=== PATIENT | male | born 1965 | race Caucasian/White ===

== ENCOUNTER → 2017-11-11 08:41 | Outpatient (CLI) | payer BC, SELFPAY ==
--- NOTE | 2017-11-11 09:11 | US_ITS ---
US abdomen complete HISTORY: Follow-up cirrhosis ITS.REASON: CIRRHOSIS, NONALCOHOLIC, ODELL ORDERING PHYSICIAN: Gloria José PATIENT AGE: 52 years COMPARISON: 05/06/2017 FINDINGS: PANCREAS:Unremarkable. No obvious mass or abnormal fluid collection. No ductal dilatation. The tail of pancreas is not well delineated due to overlying bowel gas. LIVER:There is increased echogenicity of the liver with poor through transmission of sound. There is appropriate directional blood flow within the portal vein. The portal vein is not enlarged.. No focal liver lesion demonstrated. RIGHT KIDNEY:Unremarkable. Normal size and echogenicity. No hydronephrosis LEFT KIDNEY:Unremarkable. No hydronephrosis. Normal size and echogenicity. GALLBLADDER:There is a small polyp in the fundus of the gallbladder measuring 4 mm.. No gallstones, gallbladder wall thickening, pericholecystic fluid, or biliary dilatation. AORTA:No evidence of aneurysmal dilatation. SPLEEN:Spleen is enlarged at 15 cm ASCITES:None demonstrated. IMPRESSION: 1. Hepatic steatosis with splenomegaly as before. There is appropriate directional blood flow within a nondilated portal vein 2. Gallbladder polyp
== END ==
PROVIDERS: PCP Family Medicine; Visit Provider Nurse Practitioner Acute Care
DX: K74.60 Unspecified cirrhosis of liver (principal)
CPT/HCPCS: 76700

== ENCOUNTER 2018-01-04 07:39 | Observation (INO) ==
[2018-01-04 08:15] LABS: Basophils % 0.5 % (0.1-2.0); Eosinophils # 0.5 K/mm3 (0.0-0.4); Eosinophils % 8.7 % (0.1-12.0); Hematocrit 41.5 % (42.0-52.0); Hemoglobin 14.2 g/dL (14.1-18.0); Lymphocytes # 1.6 K/mm3 (0.7-4.5); Mean Corpuscular HGB Conc 34.1 g/dL (31.8-35.4); Mean Corpuscular Hemoglobin 31.8 pg (27.0-31.2); Mean Corpuscular Volume 93.2 fl (80-94); Mean Platelet Volume 8.2 fl (7.4-10.4); Monocytes # 0.2 K/mm3 (0.1-1.0); Monocytes % 4.3 % (1.7-9.3); Neutrophils # 2.9 K/mm3 (1.8-7.8); Neutrophils % 55.4 % (37.0-80.0); Platelet Count 170 K/mm3 (142-424); Red Blood Count 4.45 M/mm3 (4.60-6.20); Red Cell Distribution Width 13.6 % (11.5-17.5); White Blood Count 5.2 K/mm3 (4.8-10.8)
--- NOTE | 2018-01-04 08:23 | Emergency Department Note ---
ED Disposition Clinical Impression: Unstable angina pectoris Disposition: Admitted as Observation Condition on Discharge: Good Referrals: Corin Murcia MD [Primary Care Provider] - - Critical Care Critical Care Time: No Attestation: On 01/04/18, the high probability of a clinically significant, sudden or life threatening deterioration of the following system(s) required my full and direct attention, intervention and personal management. The time I documented below is in addition to time spent performing reported procedures but includes the following listed in this critical care notation. Medical Decision Making - Medical Records Medical records reviewed: Yes: I reviewed the patient's medical records. - Adin Inquiry Pt receiving controlled substance: No Vital Signs: 01/04/18 07:40 Temperature 97.5 F L Temperature Source Oral Pulse Rate [Right Brachial] 72 Respiratory Rate 22 Blood Pressure [Right Arm] 140/86 Blood Pressure Mean [Right Arm] 104 Blood Pressure Source [Right Arm] Automatic Cuff Blood Pressure Position [Right Arm] Sitting 02 Sat by Pulse Oximetry 97 Oxygen Delivery Method Room Air Orders (Tests/Meds): ORDERS Category Date Time Status XR chest 2V Stat Exams 01/04/18 08:03 Ordered Cardiac Enzymes Stat Lab 01/04/18 08:03 Ordered Complete Blood Count Auto Diff Stat Lab 01/04/18 08:03 Ordered Comprehensive Metabolic Panel Stat Lab 01/04/18 08:03 Ordered - ECG Data Tracing #1 I reviewed this ECG and interpreted as documented below: Normal Sinus Rhythm: Yes Ischemic changes: non-specific ST-T wave changes - Physician Consults Physician Consulted: babita Reason -: Admission Additional Consult: emely Reason -: Pt condition Chest Pain HPI - General Chief Complaint: PAIN Stated Complaint: CP Time Seen by Provider: 01/04/18 07:45 Mode of Arrival: Ambulatory Source of Information: Patient, Medical Record Limitations: No Limitations Description of Symptoms (Recalled from ER Triage Doc. by RN): CHEST PAIN INTERMITTENTLY THAT HAS PROGRESSIVELY GOTTEN WORSE; PT STATES IT. WOKE HIM UP IN THE MIDDLE OF THE NIGHT AND CAUSED HIM TO HAVE LEFT ARM NUMBNESS - History of Present Illness HPI narrative: pt with known card disease with episodes of angina - pt with diabetes MD complaint: chest pain indicative of cardiac Onset (ago): hour(s) Duration: intermittent Activity at onset: during rest Pain location: left chest Severity: moderate Quality: tightness Pain radiation: LUE Risk Factors for CAD: Diabetes Treatments prior to or on arrival for Cardiac Chest Pain: none - Related Data Prior Cardiac Testing/Procedures: Cardiac Angiogram Home Medications Medication Instructions Recorded Confirmed Metformin HCl [Metformin 500mg 1,000 mg PO BID 01/04/18 01/04/18 Tablet] Allergies Allergy/AdvReac Type Severity Reaction Status Date / Time No Known Allergies Allergy Verified 01/04/18 07:50 [facility] History I have reviewed the patient's past medical history: Yes Medical History: Reports:: Diabetes Mellitus Type 2 Denies:: Internal Pacemaker Laterality Cases: Bilateral: Carpal Tunnel Release Other Surgeries: No: Pacemaker - Social History Educational Level: Completed High School Alcohol Intake: never - Psychiatric History Expresses thoughts of harming self/others: None Suicide Plan Description: No Plan ROS Obtained: Yes All systems reviewed & no additional complaints - Constitutional Constitutional: Denies fever(s) - Eyes Eyes: Denies change in vision - ENT Ears, Nose, Mouth, and Throat: Denies sore throat - Cardiovascular Cardiovascular: Reports chest pain at rest - Respiratory Respiratory: No cough - Gastrointestinal Gastrointestingal: Denies: abdominal pain - Musculoskeletal Musculoskeletal: Denies joint pain - Integumentary/Breasts Skin/Breast: Denies rash - Neurologic Neurologic: Denies seizure-like activity Physical Exam - General General appearance: in no apparent distress - Head Head exam: normocephalic - Eye Eye exam: Present: PERRL, EOMI - ENT ENT exam: Present: mucous membranes moist - Neck Neck exam: Present: normal inspection - Respiratory Respiratory exam: Present: normal lung sounds bilaterally. Absent: respiratory distress - Cardiovascular Cardiovascular exam: Present: regular rate, systolic murmur - Abdominal Exam Abdominal exam: Present: soft - Extremities Exam Extremities exam: Absent: joint swelling - Neurological Exam Neurological exam: Present: alert, oriented X3, CN II-XII intact - Psychiatric Psychiatric exam: Present: normal affect - Skin Skin exam: Absent: rash
[2018-01-04 08:35] LABS: Alanine Aminotransferase 81 U/L (12-78); Albumin Level 4.1 gm/dL (3.4-5.0); Albumin/Globulin Ratio 1.2 (1.1-1.8); Alkaline Phosphatase 79 U/L (46-116); Anion Gap 16.2 mEq/L (5-15); Aspartate Amino Transferase 60 U/L (15-37); Bilirubin,Total 0.3 mg/dL (0.2-1.0); Blood Urea Nitrogen 20 mg/dL (7-18); Carbon Dioxide 24 mmol/L (21.0-32.0); Chloride 106 mmol/L (98-107); Creatine Kinase 152 U/L (39-308); Globulin 3.3 gm/dl (1.3-3.2); Glucose 153 mg/dL (74-106); Potassium 4.2 mmoL/L (3.5-5.1); Sodium 142 mmol/L (136-145); Total Protein,Serum 7.4 gm/dL (6.4-8.2)
--- NOTE | 2018-01-04 08:38 | Consult Report ---
History of Present Illness Consult date: 01/04/18 Requesting physician: Corin Murcia Consult reason: chest pain Chief complaint: chest pain Additional Medical History:: 1. CAD A. [facility], 2016, bifurcating CAD of LAD (2 mm vessel) and diagonal with recommendation for medical therapy until uncontrolled angina. 2. DM 3. HTN 4. HLD History of present illness: 52 yo WM with known CAD, DM, HTN and HLD presented to ER for evaluation of recurrent chest pain and left arm discomfort over the last several hours. Symptoms of exertional CP and SOA noted while riding bicycle this week with increasing episodes with less activity since then to the point of occurring at rest. Initial troponin is kaylin and EKG is sinus without evidence of ACS. Cardiology consulted for evaluation. [facility] History Medical History: Reports:: Coronary Artery Disease, Diabetes Mellitus Type 2, Hyperlipidemia, Hypertension Denies:: Internal Pacemaker Laterality Cases: Bilateral: Carpal Tunnel Release Other Surgeries: No: Pacemaker - *Social History Educational Level: Completed High School Alcohol Intake: never - Psychiatric History Expresses thoughts of harming self/others: None Suicide Plan Description: No Plan Meds Home Medications Medication Instructions Recorded Confirmed Type Amlodipine Besylate [Norvasc 5mg 5 mg .ROUTE DAILY 01/04/18 01/04/18 History tablet] Aspirin [Aspir 81] 81 mg PO DAILY 01/04/18 01/04/18 History Atorvastatin Calcium [Atorvastatin 20 mg PO DAILY 01/04/18 01/04/18 History 20mg Tab] Clopidogrel Bisulfate [Plavix 75mg 75 mg PO DAILY 01/04/18 01/04/18 History Tab] Doxazosin Mesylate [Cardura 2mg 2 mg PO DAILY 01/04/18 01/04/18 History Tab] Esomeprazole Magnesium 40 mg PO DAILY 01/04/18 01/04/18 History Isosorbide Mononitrate [Imdur 60mg 60 mg PO DAILY 01/04/18 01/04/18 History ER tablet] Metformin HCl [Metformin 500mg 1,000 mg PO DAILY 01/04/18 01/04/18 History Tablet] Metoprolol Succinate 100 mg PO DAILY 01/04/18 01/04/18 History [place]-3 Fatty Acids/Fish Oil [Fish 1 each PO DAILY 01/04/18 01/04/18 History Oil 1,000 mg Capsule] Pramipexole Di-HCl [Mirapex 0 mg PO DAILY 01/04/18 01/04/18 History 0.125mg tablet] Pramipexole Di-HCl [Mirapex 0.125 mg .ROUTE DAILY 01/04/18 01/04/18 History 0.125mg tablet] Saxagliptin HCl [Onglyza] 5 mg PO DAILY 01/04/18 01/04/18 History Sertraline HCl [Zoloft 100mg 0 mg PO DAILY 01/04/18 01/04/18 History tablet] Sertraline HCl [Zoloft 100mg 100 mg PO DAILY 01/04/18 01/04/18 History tablet] Allergies Allergy/AdvReac Type Severity Reaction Status Date / Time No Known Allergies Allergy Verified 01/04/18 07:50 Review of Systems - *Cardiovascular Reports chest pain, Reports shortness of breath with activity - *Respiratory Reports shortness of breath with activity - *Gastrointestinal Denies abdominal pain - *Neurologic Denies seizure-like activity Exam Vital signs and Labs for Last 24 Hours: Temp Pulse Resp BP Pulse Ox 97.5 F L 72 22 140/86 97 01/04/18 07:40 01/04/18 07:40 01/04/18 07:40 01/04/18 07:40 01/04/18 07:40 Laboratory Results - last 24 hr 01/04/18 07:45: WBC 5.2, RBC 4.45 L, Hgb 14.2, Hct 41.5 L, MCV 93.2, MCH 31.8 H , MCHC 34.1, RDW 13.6, Plt Count 170, MPV 8.2, Neut % (Auto) 55.4, Lymph % (Auto ) 31.0, [place] % (Auto) 4.3, Eos % (Auto) 8.7, Baso % (Auto) 0.5, Neut # (Auto) 2.9, Lymph # (Auto) 1.6, [place] # (Auto) 0.2, Eos # (Auto) 0.5 H, Baso # (Auto) 0.0 I & O for Last 24 hours: Intake & Output 01/01/18 01/02/18 01/03/18 01/04/18 11:59 11:59 11:59 11:59 Weight 200 lb - *Routine Neck Exam Absent: carotid bruit - *Routine Respiratory Exam Present: CTA bilaterally - *Routine Cardiovascular Exam Present: RRR. Absent: murmur, gallop - *Routine Extremities Exam Absent: edema - *Routine Neurological Exam Present: alert, oriented X3, moving all extremities Assessment and Plan (1) CAD (coronary artery disease) Current visit: Yes Status: Acute Category: Medical Code(s): I25.10 - Atherosclerotic heart disease of [place] coronary artery without angina pectoris (2) HTN (hypertension) Current visit: Yes Status: Acute Category: Medical Code(s): I10 - Essential (primary) hypertension (3) HLD (hyperlipidemia) Current visit: Yes Status: Acute Category: Medical Code(s): E78.5 - Hyperlipidemia, unspecified (4) Diabetes mellitus Current visit: Yes Status: Acute Category: Medical Code(s): E11.9 - Type 2 diabetes mellitus without complications - Assessment and plan all Dx Assessment and Plan for all problems:: 1. Pt has UAP with known CAD on medical therapy. Will proceed with LHC. 2. Continue ASA and plavix along with norvasc and isosorbide. 3. Continue statin therapy. 4. Further recommendations to follow.
--- NOTE | 2018-01-04 09:29 | History & Physical Report ---
*Admission Date: 01/04/18 *Chief complaint: Chest pain *History of present illness: Mr Hou is a 52 yo WM with known CAD, DM, HTN and HLD who presented to ER for evaluation of recurrent chest pain and left arm discomfort over the last several hours. He noted symptoms of exertional CP and SOA while riding a bicycle this week with increasing episodes with less activity occurring at rest. He was driving to work this AM when the CP began again and he just drove himself to the hospital ER. He has been seen by cardiology. Initial troponin was normal and EKG revealed sinus rhythm without evidence of ACS. Due to his UAP with known CAD on medical therapy, he was taken to the asset availability leader for a LHC. At the time of this exam patient has had the LHC with stent placement. He remains drowsy. He denies CP and SOB. [facility] History Medical History: Reports:: Arrhythmia, Atherosclerotic Heart Disease, Coronary Artery Disease, Depression, Diabetes Mellitus Type 2, Hyperlipidemia, Hypertension, Kidney Stones Denies:: Internal Pacemaker, Seizures Comment: Diverticulosis Laterality Cases: Bilateral: Carpal Tunnel Release Other Surgeries: Yes: Cardiac Catheterization. No: Pacemaker Comment: Kidney stone extraction - *Social History Educational Level: Completed High School Smoking Status: Never smoker Alcohol Intake: never - Psychiatric History Expresses thoughts of harming self/others: None Suicide Plan Description: No Plan *Family Hx:: Adopted Review of Systems - Constitutional Reports fatigue, Denies chills - ENT Denies ear pain, Denies sore throat - *Cardiovascular Reports chest pain, Reports chest pain at rest, Reports chest pain with activity , Reports shortness of breath with activity - *Respiratory Reports shortness of breath, Reports shortness of breath with activity, Denies cough - *Gastrointestinal Reports nausea, Reports vomiting (periodically), Denies abdominal pain, Denies vomiting blood - *Genitourinary Denies difficulty urinating - *Musculoskeletal Denies joint pain Comments: AA 2 weeks ago which left him sore; side bag did deploy - *Neurologic Denies abnormal walking, Denies seizure-like activity - Psychiatric Reports depression - Endocrine Reports increased urination Meds Home Medications Medication Instructions Recorded Confirmed Type Amlodipine Besylate [Norvasc 5mg 5 mg .ROUTE DAILY 01/04/18 01/04/18 History tablet] Aspirin [Aspir 81] 81 mg PO DAILY 01/04/18 01/04/18 History Atorvastatin Calcium [Atorvastatin 20 mg PO DAILY 01/04/18 01/04/18 History 20mg Tab] Clopidogrel Bisulfate [Plavix 75mg 75 mg PO DAILY 01/04/18 01/04/18 History Tab] Doxazosin Mesylate [Cardura 2mg 2 mg PO DAILY 01/04/18 01/04/18 History Tab] Esomeprazole Magnesium 40 mg PO DAILY 01/04/18 01/04/18 History Isosorbide Mononitrate [Imdur 60mg 60 mg PO DAILY 01/04/18 01/04/18 History ER tablet] Metformin HCl [Metformin 500mg 1,000 mg PO DAILY 01/04/18 01/04/18 History Tablet] Metoprolol Succinate 100 mg PO DAILY 01/04/18 01/04/18 History [place]-3 Fatty Acids/Fish Oil [Fish 1 each PO DAILY 01/04/18 01/04/18 History Oil 1,000 mg Capsule] Pramipexole Di-HCl [Mirapex 0 mg PO DAILY 01/04/18 01/04/18 History 0.125mg tablet] Pramipexole Di-HCl [Mirapex 0.125 mg .ROUTE DAILY 01/04/18 01/04/18 History 0.125mg tablet] Saxagliptin HCl [Onglyza] 5 mg PO DAILY 01/04/18 01/04/18 History Sertraline HCl [Zoloft 100mg 0 mg PO DAILY 01/04/18 01/04/18 History tablet] Sertraline HCl [Zoloft 100mg 100 mg PO DAILY 01/04/18 01/04/18 History tablet] Allergies Allergy/AdvReac Type Severity Reaction Status Date / Time No Known Allergies Allergy Verified 01/04/18 07:50 Exam Vital signs and Labs for Last 24 Hours: Temp Pulse Resp BP Pulse Ox 98.2 F 75 18 125/80 96 01/04/18 09:19 01/04/18 09:19 01/04/18 09:19 01/04/18 09:19 01/04/18 09:16 Laboratory Results - last 24 hr 01/04/18 07:45: WBC 5.2, RBC 4.45 L, Hgb 14.2, Hct 41.5 L, MCV 93.2, MCH 31.8 H , MCHC 34.1, RDW 13.6, Plt Count 170, MPV 8.2, Neut % (Auto) 55.4, Lymph % (Auto ) 31.0, [place] % (Auto) 4.3, Eos % (Auto) 8.7, Baso % (Auto) 0.5, Neut # (Auto) 2.9, Lymph # (Auto) 1.6, [place] # (Auto) 0.2, Eos # (Auto) 0.5 H, Baso # (Auto) 0.0 01/04/18 07:45: Sodium 142, Potassium 4.2, Chloride 106, Carbon Dioxide 24, Anion Gap 16.2 H, BUN 20 H, Creatinine 0.74, Estimated Creat Clear 150, Estimated GFR 111, Est GFR ( Amer) 134, Glucose 153 H, Calcium 9.0, Total Bilirubin 0.3, AST 60 H, ALT 81 H, Alkaline Phosphatase 79, Total Creatine Kinase 152, CK-MB (CK-2) 1.2, CK-MB (CK-2) Rel Index 0.8, Troponin I < 0.02, Total Protein 7.4, Albumin 4.1, Globulin 3.3 H, Albumin/Globulin Ratio 1.2 I & O for Last 24 hours: Intake & Output 01/01/18 01/02/18 01/03/18 01/04/18 11:59 11:59 11:59 11:59 Weight 200 lb Radiology Reports for the Last 24 Hours: CXR 01/04/18 MPRESSION: 1. No definite acute finding. 2. Increased density over the upper aspect of the heart in the anterior clear space and overlying the left ventricle which may be due to areas of summation artifact. Recommend follow-up to confirm and to exclude underlying pathological process 01/04/18 [facility] IMPRESSION: 1. Angiographically indeterminate disease in the proximal to mid LAD which produced a severe hemodynamic response to adenosine 2. Successful stenting of the proximal to mid LAD hemodynamically severe disease reduced to 0% with 1 drug-eluting stent 3. Normal ejection fraction 4. Elevated LVEDP PLAN: 1. Brilinta and aspirin 2. LDL less than 55 3. Patient has diastolic dysfunction and would benefit from diuretics 4. Cardiac rehabilitation 5. Avoidance of tobacco products 6. Aggressive risk factor modification - Constitutional no acute distress Comments: drowsy after [facility]; easily awakened - *Routine HEENT Exam Head: Present: normocephalic, atraumatic Eye: Present: PERRL. Absent: conjunctival icterus ENT: Present: mucous membranes moist - *Routine Neck Exam Present: supple. Absent: lymphadenopathy, thyromegaly - *Routine Respiratory Exam Present: CTA bilaterally (A&P) - *Routine Cardiovascular Exam Present: RRR (monitor showing SB) - *Routine Abdominal Exam Present: soft, normoactive bowel sounds. Absent: tenderness - *Routine Extremities Exam Absent: edema, calf tenderness - *Routine Neurological Exam Present: alert drowsy H&P: Result - Labs Labs: Short CBC 01/04/18 Range/Units 07:45 WBC 5.2 (4.8-10.8) K/mm3 Hgb 14.2 (14.1-18.0) g/dL Hct 41.5 L (42.0-52.0) % Plt Count 170 (142-424) K/mm3 BMP 01/04/18 07:45 Sodium 142 Potassium 4.2 Chloride 106 Carbon Dioxide 24 BUN 20 H Creatinine 0.74 Glucose 153 H Calcium 9.0 Cardiac Enzymes 01/04/18 Range/Units 07:45 Total Creatine Kinase 152 (39-308) U/L CK-MB (CK-2) 1.2 (0.0-3.6) ng/ml Troponin I < 0.02 (0.00-0.06) ng/ml Liver Function 01/04/18 Range/Units 07:45 Total Bilirubin 0.3 (0.2-1.0) mg/dL AST 60 H (15-37) U/L ALT 81 H (12-78) U/L Alkaline Phosphatase 79 (46-116) U/L Albumin 4.1 (3.4-5.0) gm/dL Assessment and Plan (1) CAD (coronary artery disease) Current visit: Yes Status: Acute Category: Medical Code(s): I25.10 - Atherosclerotic heart disease of [place] coronary artery without angina pectoris (2) HTN (hypertension) Current visit: Yes Status: Acute Category: Medical Code(s): I10 - Essential (primary) hypertension (3) HLD (hyperlipidemia) Current visit: Yes Status: Acute Category: Medical Code(s): E78.5 - Hyperlipidemia, unspecified (4) Diabetes mellitus Current visit: Yes Status: Acute Category: Medical Code(s): E11.9 - Type 2 diabetes mellitus without complications (5) Status post insertion of drug-eluting stent into left anterior descending ( LAD) artery for coronary artery disease Current visit: Yes Status: Acute Category: Surgical Code(s): Z95.5 - Presence of coronary angioplasty implant and graft (6) Unstable angina pectoris Current visit: Yes Status: Acute Category: Medical Code(s): I20.0 - Unstable angina (7) Diastolic dysfunction Current visit: Yes Status: Acute Category: Medical Code(s): I51.9 - Heart disease, unspecified - Assessment and plan all Dx Assessment and Plan for all problems:: Will observe overnight and adjust meds as per cardiology
[2018-01-05 06:19] LABS: Basophils % 0.4 % (0.1-2.0); Eosinophils # 0.3 K/mm3 (0.0-0.4); Eosinophils % 4.8 % (0.1-12.0); Hematocrit 41.9 % (42.0-52.0); Lymphocytes # 1.3 K/mm3 (0.7-4.5); Lymphocytes % 24.5 K/mm3 (10-50); Mean Corpuscular HGB Conc 33.4 g/dL (31.8-35.4); Mean Corpuscular Volume 92.7 fl (80-94); Monocytes # 0.2 K/mm3 (0.1-1.0); Monocytes % 4.1 % (1.7-9.3); Neutrophils # 3.6 K/mm3 (1.8-7.8); Neutrophils % 66.3 % (37.0-80.0); Platelet Count 157 K/mm3 (142-424); Red Blood Count 4.52 M/mm3 (4.60-6.20); Red Cell Distribution Width 13.5 % (11.5-17.5); White Blood Count 5.4 K/mm3 (4.8-10.8)
[2018-01-05 06:26] LABS: Chol/HDL Ratio 3.3 (1-3.5)
--- NOTE | 2018-01-05 07:39 | Pharmacy Consult Notes ---
[facility] Pharmacy VTE Monitoring - Patient Demographics Admission date: 01/04/18 Report Date: 01/05/18 Time: 07:39 Allergies/Adverse Reactions: Patient Allergies No Known Allergies Allergy (Verified 01/04/18 07:50) Height: 1.78 m Weight: 93.582 kg Patient Problems: Current Active Problems Unstable angina pectoris (Acute) CAD (coronary artery disease) (Acute) HTN (hypertension) (Acute) HLD (hyperlipidemia) (Acute) Diabetes mellitus (Acute) Status post insertion of drug-eluting stent into left anterior descending (LAD) artery for coronary artery disease (Acute) Diastolic dysfunction (Acute) - VTE Risk Labs: VTE Related Lab Results Hgb 14.0 g/dL (14.1-18.0) L 01/05/18 05:55 Hct 41.9 % (42.0-52.0) L 01/05/18 05:55 Plt Count 157 K/mm3 (142-424) 01/05/18 05:55 BUN 12 mg/dL (7-18) D 01/05/18 05:55 Creatinine 0.72 mg/dL (0.70-1.30) 01/05/18 05:55 Estimated Creat Clear 162 mL/min (0-300) 01/05/18 05:55 VTE Score: 1 VTE Risk Level: Low Risk - Prophylaxis VTE Prophylaxis Ordered?: Yes Types of VTE Prophylaxis: TEDS Knee High Location of Applied Device: Bilateral Lower Extremeties - VTE Diagnosis Confirmed Treatment or plan recommended: Continue Current Treatment
--- NOTE | 2018-01-05 08:50 | Progress Note ---
Internal Medicine - PN: Subj *Date: 01/05/18 *Time: 08:52 Interval history: The patient is doing well this morning. He is remained stable through the night. His blood pressure slightly elevated this morning. His rhythm is normal. He is okay per cardiology to be discharged. He will continue on Brilinta 90 mg twice daily and 81 mg of aspirin a day. Plavix will be discontinued. He did not receive his blood pressure medications are regular medications this morning. I have placed orders to correct that. He will be seen in follow-up in the office next week by Dr. jc and be seen in follow- up by cardiology per their orders. Exam Vital signs and Labs for Last 24 Hours: Temp Pulse Resp BP Pulse Ox 98.0 F 61 24 139/84 99 01/05/18 04:00 01/05/18 06:00 01/05/18 06:00 01/05/18 06:00 01/05/18 06:00 Laboratory Results - last 24 hr 01/04/18 11:11: Activated Clotting Time 278 H* 01/04/18 11:17: Activated Clotting Time 389 H* D 01/05/18 05:55: WBC 5.4, RBC 4.52 L, Hgb 14.0 L, Hct 41.9 L, MCV 92.7, MCH 31.0 , MCHC 33.4, RDW 13.5, Plt Count 157, MPV 8.0, Neut % (Auto) 66.3, Lymph % (Auto ) 24.5, [place] % (Auto) 4.1, Eos % (Auto) 4.8, Baso % (Auto) 0.4, Neut # (Auto) 3.6, Lymph # (Auto) 1.3, [place] # (Auto) 0.2, Eos # (Auto) 0.3, Baso # (Auto) 0.0 01/05/18 05:55: Sodium 143, Potassium 4.0, Chloride 108 H, Carbon Dioxide 26, Anion Gap 13.0, BUN 12 D, Creatinine 0.72, Estimated Creat Clear 162, Estimated GFR 115, Est GFR ( Amer) 139, Glucose 113 H D, Magnesium 2.2, Triglycerides 145, Cholesterol 105 L, LDL Cholesterol 44, VLDL Cholesterol 29, HDL Cholesterol 32, Cholesterol/HDL Ratio 3.3 01/05/18 06:05: POC Glucose 109 I & O for Last 24 hours: Intake & Output 01/02/18 01/03/18 01/04/18 01/05/18 11:59 11:59 11:59 11:59 Intake Total 600 / 600 Output Total 900 / 900 Balance -300 / -300 Weight 200 lb 206 lb 5 oz - Constitutional no acute distress - *Routine HEENT Exam Eye: Present: PERRL. Absent: conjunctival icterus ENT: Present: mucous membranes moist - Routine Chest/Breast/Axilla Exam Chest wall: Absent: tenderness - *Routine Respiratory Exam Present: CTA bilaterally - *Routine Cardiovascular Exam Present: RRR. Absent: murmur, rubs - *Routine Abdominal Exam Present: soft. Absent: tenderness - *Routine Extremities Exam Absent: edema - *Routine Skin Exam Present: intact Assessment and Plan (1) CAD (coronary artery disease) Current visit: Yes Status: Acute Category: Medical Code(s): I25.10 - Atherosclerotic heart disease of [place] coronary artery without angina pectoris (2) HTN (hypertension) Current visit: Yes Status: Acute Category: Medical Code(s): I10 - Essential (primary) hypertension (3) HLD (hyperlipidemia) Current visit: Yes Status: Acute Category: Medical Code(s): E78.5 - Hyperlipidemia, unspecified (4) Diabetes mellitus Current visit: Yes Status: Acute Category: Medical Code(s): E11.9 - Type 2 diabetes mellitus without complications (5) Status post insertion of drug-eluting stent into left anterior descending ( LAD) artery for coronary artery disease Current visit: Yes Status: Acute Category: Surgical Code(s): Z95.5 - Presence of coronary angioplasty implant and graft (6) Unstable angina pectoris Current visit: Yes Status: Acute Category: Medical Code(s): I20.0 - Unstable angina (7) Diastolic dysfunction Current visit: Yes Status: Acute Category: Medical Code(s): I51.9 - Heart disease, unspecified - Assessment and plan all Dx Assessment and Plan for all problems:: The patient will be discharged. See the medicine list. Brilinta and aspirin are included. Follow-up will be in [address] Jc and by cardiology per their direction.
--- NOTE | 2018-01-05 10:03 | Progress Note ---
Subjective Date: 01/05/18 Time: 10:00 Principal diagnosis: Unstable angina Interval history: 52 yo WM in bed in NAD. Occasional twinge sensation in chest but nothing like prior to admission. Ready to go home. Exam Vital signs and Labs for Last 24 Hours: Temp Pulse Resp BP Pulse Ox 98.0 F 61 24 139/84 99 01/05/18 04:00 01/05/18 06:00 01/05/18 06:00 01/05/18 06:00 01/05/18 06:00 Laboratory Results - last 24 hr 01/04/18 11:11: Activated Clotting Time 278 H* 01/04/18 11:17: Activated Clotting Time 389 H* D 01/05/18 05:55: WBC 5.4, RBC 4.52 L, Hgb 14.0 L, Hct 41.9 L, MCV 92.7, MCH 31.0 , MCHC 33.4, RDW 13.5, Plt Count 157, MPV 8.0, Neut % (Auto) 66.3, Lymph % (Auto ) 24.5, [place] % (Auto) 4.1, Eos % (Auto) 4.8, Baso % (Auto) 0.4, Neut # (Auto) 3.6, Lymph # (Auto) 1.3, [place] # (Auto) 0.2, Eos # (Auto) 0.3, Baso # (Auto) 0.0 01/05/18 05:55: Sodium 143, Potassium 4.0, Chloride 108 H, Carbon Dioxide 26, Anion Gap 13.0, BUN 12 D, Creatinine 0.72, Estimated Creat Clear 162, Estimated GFR 115, Est GFR ( Amer) 139, Glucose 113 H D, Magnesium 2.2, Triglycerides 145, Cholesterol 105 L, LDL Cholesterol 44, VLDL Cholesterol 29, HDL Cholesterol 32, Cholesterol/HDL Ratio 3.3 01/05/18 06:05: POC Glucose 109 I & O for Last 24 hours: Intake & Output 01/02/18 01/03/18 01/04/18 01/05/18 11:59 11:59 11:59 11:59 Intake Total 600 / 600 Output Total 900 / 900 Balance -300 / -300 Weight 200 lb 206 lb 5 oz - *Routine Respiratory Exam Present: CTA bilaterally - *Routine Cardiovascular Exam Present: RRR Progress Note: A&P (1) CAD (coronary artery disease) Status: Acute Current Visit: Yes (2) HTN (hypertension) Status: Acute Current Visit: Yes (3) HLD (hyperlipidemia) Status: Acute Current Visit: Yes (4) Diabetes mellitus Status: Acute Current Visit: Yes (5) Status post insertion of drug-eluting stent into left anterior descending ( LAD) artery for coronary artery disease Status: Acute Current Visit: Yes (6) Unstable angina pectoris Status: Acute Current Visit: Yes (7) Diastolic dysfunction Status: Acute Current Visit: Yes Assessment and Plan for All Diagnoses:: OK for discharge home from cardiology standpoint. Will use Brilinta and ASA for now and stop plavix. If unable to afford Brilinta then can return to plavix. OK to return to work with lifting restrictions for right arm for one week. Follow up next Tuesday in office.
--- NOTE | 2018-01-08 22:13 | Discharge Summary ---
General - General Admission date:: 01/04/18 Discharge date: 01/05/18 HPI HPI: Mr Hou is a 52 yo WM with known CAD, DM, HTN and HLD who presented to ER for evaluation of recurrent chest pain and left arm discomfort over the last several hours. He noted symptoms of exertional CP and SOA while riding a bicycle this week with increasing episodes with less activity occurring at rest. He was driving to work this AM when the CP began again and he just drove himself to the hospital ER. He has been seen by cardiology. Initial troponin was normal and EKG revealed sinus rhythm without evidence of ACS. Due to his UAP with known CAD on medical therapy, he was taken to the labor relations supervisor for a LHC. At the time of this exam patient has had the LHC with stent placement. He remains drowsy. He denies CP and SOB. Hospital Course Hospital Course: The patient did well after the procedure and stayed overnight for observation. He remained stable through the night. His blood pressure was slightly elevated the am after stent placement. His rhythm was normal. Cardiology felt he was stable to be discharged on Brilinta 90 mg twice daily and 81 mg of aspirin a day. Plavix was discontinued. He will be seen in follow-up in the office in a week with Dr. jc and with cardiology in a week as well. Objective Vital signs: Temp Pulse Resp BP Pulse Ox 98.1 F 76 16 145/92 97 01/05/18 12:00 01/05/18 12:00 01/05/18 12:00 01/05/18 12:00 01/05/18 12:00 Narrative: - Constitutional no acute distress Comments: drowsy after LHC; easily awakened - *Routine HEENT Exam Head: Present: normocephalic, atraumatic Eye: Present: PERRL. Absent: conjunctival icterus ENT: Present: mucous membranes moist - *Routine Neck Exam Present: supple. Absent: lymphadenopathy, thyromegaly - *Routine Respiratory Exam Present: CTA bilaterally (A&P) - *Routine Cardiovascular Exam Present: RRR (monitor showing SB) - *Routine Abdominal Exam Present: soft, normoactive bowel sounds. Absent: tenderness - *Routine Extremities Exam Absent: edema, calf tenderness - *Routine Neurological Exam Present: alert drowsy DS: Diagnosis - Discharge Diagnosis (1) CAD (coronary artery disease) Status: Acute (2) HTN (hypertension) Status: Acute (3) HLD (hyperlipidemia) Status: Acute (4) Diabetes mellitus Status: Acute (5) Status post insertion of drug-eluting stent into left anterior descending ( LAD) artery for coronary artery disease Status: Acute (6) Unstable angina pectoris Status: Acute (7) Diastolic dysfunction Status: Acute Discharge Plan - Patient Discharge Instructions ACTIVITY: Limited activity DIET: low fat, low cholesterol Patient Instructions: Angina, Cardiac Catheterization - Follow up Plan Follow up with: Corin Jc MD [Primary Care Provider] - 1 week Disposition: Home, Self-Halfway Medications: Home Medications Medication Instructions Recorded Confirmed Type Amlodipine Besylate [Norvasc 5mg 5 mg .ROUTE DAILY 01/04/18 01/04/18 History tablet] Aspirin [Aspir 81] 81 mg PO DAILY 01/04/18 01/04/18 History Atorvastatin Calcium [Atorvastatin 20 mg PO DAILY 01/04/18 01/04/18 History 20mg Tab] Doxazosin Mesylate [Cardura 2mg 2 mg PO DAILY 01/04/18 01/04/18 History Tab] Esomeprazole Magnesium 40 mg PO DAILY 01/04/18 01/04/18 History Isosorbide Mononitrate [Imdur 60mg 60 mg PO DAILY 01/04/18 01/04/18 History ER tablet] Metformin HCl [Metformin 500mg 1,000 mg PO DAILY 01/04/18 01/04/18 History Tablet] Metoprolol Succinate 100 mg PO DAILY 01/04/18 01/04/18 History Lynn-3 Fatty Acids/Fish Oil [Fish 1 each PO DAILY 01/04/18 01/04/18 History Oil 1,000 mg Capsule] Pramipexole Di-HCl [Mirapex 0 mg PO DAILY 01/04/18 01/04/18 History 0.125mg tablet] Saxagliptin HCl [Onglyza] 5 mg PO DAILY 01/04/18 01/04/18 History Sertraline HCl [Zoloft 100mg 100 mg PO DAILY 01/04/18 01/04/18 History tablet] Prescriptions/Medication Reconciliation: New Ticagrelor [Brilinta 90mg Tablet] 90 mg PO BID #60 tab Continue Metformin HCl [Metformin 500mg Tablet] 1,000 mg PO DAILY Sertraline HCl [Zoloft 100mg tablet] 100 mg PO DAILY Saxagliptin HCl [Onglyza] 5 mg PO DAILY Pramipexole Di-HCl [Mirapex 0.125mg tablet] 0 mg PO DAILY Lynn-3 Fatty Acids/Fish Oil [Fish Oil 1,000 mg Capsule] 1 each PO DAILY Metoprolol Succinate 100 mg PO DAILY Isosorbide Mononitrate [Imdur 60mg ER tablet] 60 mg PO DAILY Esomeprazole Magnesium 40 mg PO DAILY Doxazosin Mesylate [Cardura 2mg Tab] 2 mg PO DAILY Atorvastatin Calcium [Atorvastatin 20mg Tab] 20 mg PO DAILY Amlodipine Besylate [Norvasc 5mg tablet] 5 mg .ROUTE DAILY Aspirin [Aspir 81] 81 mg PO DAILY Discontinued Sertraline HCl [Zoloft 100mg tablet] 0 mg PO DAILY Pramipexole Di-HCl [Mirapex 0.125mg tablet] 0.125 mg .ROUTE DAILY Clopidogrel Bisulfate [Plavix 75mg Tab] 75 mg PO DAILY
== END 2018-01-05 12:30 | disposition home or self-care (01) ==
LOC: 2ND 07:39 → ER 07:39 → 2ND 09:19 → ICU 11:29
PROVIDERS: ADMIT Family Medicine; ATTEND Family Medicine

== ENCOUNTER 2018-01-26 10:48 | Outpatient (RCR) | payer BC, SELFPAY | END 2018-02-27 14:57 | disposition home or self-care (01) | LOC: PT 10:48 | PROVIDERS: PCP Family Medicine; Visit Provider Internal Medicine | DX: Z95.5 Presence of coronary angioplasty implant and graft (principal) ==

== ENCOUNTER → 2018-10-02 14:02 | Outpatient (CLI) | payer BC, SELFPAY ==
--- NOTE | 2018-10-02 14:07 | XR_ITS ---
XR chest 2V HISTORY: ITS.REASON: LOCALIZED EDEMA ORDERING PHYSICIAN: Corin Murcia MD PATIENT AGE: 53 years COMPARISON: PA and lateral chest 02/02/2018 FINDINGS: The cardiomediastinal silhouette and pulmonary vascularity are within normal limits. The lungs are clear without infiltrates, suspicious nodules, or pleural effusions. No acute bony abnormalities. There are multilevel degenerative changes middle lower thoracic spine. IMPRESSION: Negative chest, no acute finding
== END ==
PROVIDERS: PCP Family Medicine; Visit Provider Family Medicine
DX: R60.0 Localized edema (principal)
CPT/HCPCS: 71046

== ENCOUNTER → 2018-10-06 08:26 | Outpatient (CLI) | payer BC, SELFPAY ==
--- NOTE | 2018-10-06 08:33 | CA_ITS ---
PROCEDURE: 2-D M-mode and color Doppler study INDICATIONS FOR THE TEST: Chest pain COPD Heart Murmur Tobacco Smoking Palpitations Fatigue Syncope Edema HypertensionXDiabetes MellitusX Rheumatic Fever SOBXDOE Obesity HyperlipidemiaX Family History HD Additional History CAD PATIENT INFORMATION HEIGHT: 70 WEIGHT:204 GENDER: Male B/P:119/68 2-D/M-MODE INTERPRETATION: 2-D MEASUREMENTS OBSERVED VALUES IN CMS Right Ventricular Dimension (RVDd) 2.1 Interventricular Septum (Thickness)(IVsd) .9 Left Ventricular Internal Dimensions(LVIDd) 5.7 Left Ventricular Posterior Wall (Thickness)(LVPWd) .9 Aortic Root 3.1 Aortic Cusp Separation 1.8 Left Atrial Dimensions (LAD) 3.0 2D 1. Left atrium is mildly enlarged, left ventricle is normal size, mild concentric left ventricular hypertrophy, visually estimated ejection fraction 55% with no regional wall motion abnormality. 2. The right atrium and right ventricle are normal size and contractility. 3. The aortic valve is minimally thickened and fibrosed. 4. The mitral and tricuspid valvular grossly normal. 5. The pulmonic valve is poorly visualized. 6. No significant pericardial effusion noted. DOPPLER INTERROGATION: Doppler interrogation of the aortic, mitral and tricuspid valvular presence of mild mitral and tricuspid regurgitation, tricuspid regurgitation jet velocity is inadequate for calculation of the right ventricular systolic pressure, grade 1 diastolic dysfunction seen without tissue Doppler evidence of raised left atrial pressure. CONCLUSION: 1. Mildly enlarged left atrium, normal left ventricular size, mild concentric left ventricular hypertrophy, visually estimated ejection fraction 55% with no regional wall motion abnormality, grade 1 diastolic dysfunction seen without tissue Doppler evidence of raised left atrial pressure. 2. Mild mitral and tricuspid regurgitation 3. No significant pericardial effusion noted.
== END ==
PROVIDERS: PCP Family Medicine; Visit Provider Family Medicine
DX: I25.118 Atherosclerotic heart disease of native coronary artery with other forms of angina pectoris (principal)
CPT/HCPCS: 93306

== ENCOUNTER → 2019-06-28 07:47 | Outpatient (CLI) | payer BC, SELFPAY ==
--- NOTE | 2019-06-28 07:51 | US_ITS ---
PROCEDURE: US ABDOMEN LIMITED CLINICAL INDICATION: STEATOHEPATITIS COMPARISON: ABDPELW/O CT ABD PELVIS W/O CONTRAST from 01/10/2015 [facility] US abdomen complete from 11/11/2017 FINDINGS: PANCREAS: There is heterogeneous echogenicity of the pancreas which is nonspecific. The body/tail the pancreas appears enlarged. LIVER: No focal liver lesions demonstrated. Homogeneous echogenicity. No intrahepatic biliary ductal dilatation evident. There is appropriate direction of blood flow within a non dilated portal vein the. There is decrease through transmission of sound with increased echogenicity consistent with fatty liver RIGHT KIDNEY: There are few areas of increased echogenicity in the kidney which show some shadowing consistent with nephrolithiasis. No hydronephrosis GALLBLADDER: The gallbladder is distended. No gallstones, gallbladder wall thickening, pericholecystic fluid, or biliary dilatation is evident. Common bile duct is normal at 4 mm. IMPRESSION: 1. Distended gallbladder. No stones wall thickening or pericholecystic fluid or biliary dilatation 2. Fatty liver. 3. Heterogeneous echogenicity of the pancreas with prominent pancreatic tail. Multiphase CT of the pancreas may be of further value if clinically desired. 4. Right nephrolithiasis Dictated by: Panfilo Prater MD 06/28/2019 18:21 Electronically signed by Panfilo Prater MD in [place] 06/28/2019 18:21
== END ==
PROVIDERS: PCP Family Medicine; Visit Provider Family Medicine
DX: K75.81 Nonalcoholic steatohepatitis (NASH) (principal)
CPT/HCPCS: 76705

== ENCOUNTER → 2019-09-25 08:41 | Outpatient (CLI) | payer BC, SELFPAY ==
--- NOTE | 2019-09-25 08:44 | NM_ITS ---
PROCEDURE: NM HEPATOBILIARY W PHARM CLINICAL INDICATION: DYSPEPSIA Right upper quadrant pain and nausea COMPARISON: No exams were available for comparison TECHNIQUE: DOSE: 8.23 mCi technetium Choletec and 2 mcg of CCK. No pain reported with CCK infusion the the FINDINGS: Homogeneous activity is present within the hepatic parenchyma. Activity is present in the gallbladder by 10 minutes. Activity is present in the small bowel by 30 minutes. The gallbladder ejection fraction is calculated to be 71 percent. CCK-The patient did not report pain or other symptoms during CCK infusion. IMPRESSION: Unremarkable hepatic biliary scan. Dictated by: Panfilo Prater MD 09/25/2019 13:01 Electronically signed by Panfilo Prater MD in [place] 09/25/2019 13:01
--- NOTE | 2019-09-25 08:55 | HMH.ITSHM ---
Current Home Medications as stated by this patient Rommel Hou or credit representative. []AMLODIPINE ASA ATORVASTATIN METOPROLOL ISOSORBIDE ESOMEPRAZOLE DOXAZOSIN ROPINIROLE MONTELUKAST METFORMIN TICAGRELOR SERTRALINE SAXAGLIPTIN MIRAPEX OMEGA 3
== END ==
PROVIDERS: PCP Family Medicine; Visit Provider Family Medicine
DX: R10.13 Epigastric pain (principal)
CPT/HCPCS: 78227; A9537; J2805

== ENCOUNTER → 2019-09-26 08:40 | Outpatient (CLI) | payer BC, SELFPAY ==
--- NOTE | 2019-09-26 08:51 | CT_ITS ---
PROCEDURE: CT ABDOMEN WO/W CON CLINICAL HISTORY: DYSPEPSIA COMPARISON: US ABDOMEN LIMITED from 06/28/2019 TECHNIQUE: Multiphase post enhanced images obtained following the intravenous administration 75 mL of Optiray 350. Water was given as negative enteric contrast. Axial images obtained with sagittal and coronal reformats. All CT scans at the facility use one or more dose reduction, viz: automated exposure control, ma/kV adjustment per patient size (including targeted exams where dose is matched to indication, i.e. head), or iterative reconstruction technique. FINDINGS: Lung bases are clear. Diffuse hepatic steatosis with some coarse attenuation of the liver. There is some heterogeneous density in the posterior aspect of the right hepatic lobe which is nonspecific. There is a 7 mm hypodensity in the right hepatic lobe posteriorly and may be due to small cyst. The spleen is unremarkable. There is mild enlargement of the adrenal glands right more prominent than left measuring near water density consistent with adenomas. There are bilateral renal stones noted with 2 stones in the mid polar region of the right kidney measuring 5-6 mm and multiple stones in the left kidney in the upper and lower pole measuring up to 4 mm. No ureteral calculi. No hydronephrosis. Three phase post enhanced imaging obtained of the pancreas shows no obvious pancreatic mass or peripancreatic fluid collection. There is some lobularity along the tail the pancreas but is felt to represent normal variation and may account for the sonographic abnormality. There are mild degenerative changes in the lumbar spine. There is a small umbilical hernia containing fat IMPRESSION: 1. No obvious pancreatic mass. Mild lobularity of the tail the pancreas felt to represent a normal variant 2. Fatty liver. 3. Bilateral renal calculi nonobstructing Dictated by: Panfilo Prater MD 09/27/2019 10:31 Electronically signed by Panfilo Prater MD in [place] 09/27/2019 10:31
== END ==
PROVIDERS: PCP Family Medicine; Visit Provider Family Medicine
DX: R10.13 Epigastric pain (principal)
CPT/HCPCS: 74170; Q9967

== ENCOUNTER → 2020-02-08 06:47 | Outpatient (CLI) | payer BC, SELFPAY ==
--- NOTE | 2020-02-08 06:53 | CA_ITS ---
APPROVED REPORT EXAM: Comprehensive 2D, Doppler, and color-flow Echocardiogram Ar Manager: Miracle Becker RDCS Ht: 5 ft 10 in Wt: 213lbs BSA: 2.14 BP: 126/87 mmHg Indications: CAD,CP 2D Dimensions LVOT 2.00 cm (M/F) 1.5-2.5 M-Mode Dimensions RVDd 2.43 cm (0.9-2.6) LVDd 5.11 cm (3.5-5.7) LVDs 4.31 cm (3.5-5.7) IVSd 1.07 cm (0.6-1.1) PWd 0.88 cm (0.6-1.1) EF (Teich) 32.90% FS 15.70% EDV (Teich) 124.40 mL ESV (Teich) 83.50 mL LV Diastology E/A Ratio 0.71 Mitral Valve MV A Velocity 65.00 (40-130 cm/s) Left Ventricle Left atrium is qualitatively mildly enlarged, left ventricle is normal size, there is mild qualitative concentric left ventricular hypertrophy, visually estimated ejection fraction 55% with no regional wall motion abnormality. Grade 1 diastolic dysfunction seen without tissue Doppler evidence of raise left atrial pressure. Right Ventricle Right atrium and right ventricular normal size and contractility. Aortic Valve Aortic valve is minimally thickened and fibrosed, there is no aortic stenosis or aortic insufficiency. Mitral Valve Mitral valve is grossly normal, there is mild mitral regurgitation. Tricuspid Valve Tricuspid valve is grossly normal, there is trace tricuspid regurgitation, tricuspid regurgitation jet velocity is inadequate for calculation of the right ventricular systolic pressure. Pulmonic Valve Pulmonic valve is poorly visualized. Great Vessels Aortic root is normal size. Pericardium No significant pericardial effusion noted. Conclusion 1. Mildly enlarged left atrium, normal left ventricular size, mild qualitative concentric left ventricular hypertrophy, visually estimated ejection fraction 55% with no regional wall motion abnormality, grade 1 diastolic dysfunction seen without tissue Doppler evidence of raise left atrial pressure. 2. Mild mitral and trace tricuspid regurgitation. 3. No significant pericardial effusion noted. Electronically signed by : Ender Keenan, 02/08/2020 10:03:55
--- NOTE | 2020-02-08 07:00 | NM_ITS ---
APPROVED REPORT Exam: Nuclear Stress Test Indication: CAD, 1 STENT, HTN, D.M., C.P., SOB, FATIGUE Patient Location: Outpatient Stress Tech: Rashmi Costello ND Tech:JUAN Shah RT(R)(N) Ht: 5 ft 10 in Wt: 210 lbs HR: 87 bpm BP: 141/90 mmHg BSA: 2.13 m2 BMI: 30.1 History: CAD, 1 STENT, HTN, D.M., C.P., SOB, FATIGUE Procedure: Patient received a 0.4 mg of intravenous Lexiscan, resting heart rate 87 bpm, resting blood pressure 141/90 mmHg, with Lexiscan maximum heart rate achived was 117 bpm which is Less than 85 % of the maximum predicted heart rate and blood pressure was 128/82 mmHg. With Lexiscan, patient denied any complaint of chest pain. Electrocardiogram Resting electrocardiogram showed sinus rhythm, with Lexiscan there is less than 1.[address] segment depression noted from the baseline EKG. The EKG portion of the Lexiscan Myoview is nondiagnostic. Cardiac Stress and Resting SPECT Images: Cardiac Stress and Resting SPECT images were obtained using technetium 99m Myoview 31.9 mCi stress and 10.98 mCi at rest. Gated SPECT for analysis of segmental wall motion and calculation of the ejection fraction also done. Cardiac stress and resting SPECT images show a fixed defect in the inferior wall with normal contractility gated SPECT is likely secondary to soft tissue attenuation, no reversible ischemia seen. Computer derived ejection fraction is 52% with no regional wall motion abnormality, right ventricle is normal size and contractility. Conclusion: 1. The EKG portion of the Lexiscan Myoview is nondiagnostic. 2. No scintigraphic evidence of reversible ischemia seen, computer derived ejection fraction is 52% with no regional wall motion abnormality, right ventricle is normal size and contractility. 3. Likely normal Lexiscan Myoview study. Electronically signed by : Ender Keenan, 02/08/2020 12:22:49
--- NOTE | 2020-02-08 07:00 | CA_ITS ---
APPROVED REPORT Exam: Pharmacologic Technologist: Rashmi Costello, Ht: 5 ft 10 in Wt: 210 lbs BSA: 2.13 m2 Indications: CP/SOA Medical History Medical History: HTN, Diabetic ??? Noninsulin Medications: Furosemide (LASIX),,,,, Metoprolol,,,,, Metformin,,,,, Pantoprazole,,,,, Pramipexole,,,,, Ticagrelor,,,,, Ropinirole,,,,, Famotidine,,,,, DOxazosin,,,,, Imdur,,,,, AtorvaASTATIN,,,,, AmlodiNPINE,,,,, Cardiac Risk Factors: HTN, Diabetes (non-insulin) Stress Test Details Test: LEXISCAN Reason for pharmacologic stress test: physical limitation. HR Resting HR: 88 bpm Max Heart Rate (APMHR): 166 bpm Max HR Achieved: 118 bpm Target HR (85% APMHR): 141 bpm % of APMHR: 71 BP Resting BP: 141/90 mmHg Max BP: 150/85 mmHg ECG Clinical Exercise duration: 04:00 min Highest Stage Achieved: Stress ECG Conclusion no CP, positive during peak infusion resolving in recovery occ PVC less than 1.5mm ST depression images to follow Test Summary RECOVERY 04:00 . . 97 . 143/ 92 . . Stage 1 . . . . . . . Myoview Injected Stage 1 01:00 . . 110 . . . . Stage 2 01:00 . . 118 . 128/ 82 . . Stage 3 01:00 . . 108 . 150/ 85 . . Stage 4 01:00 . . 105 . 145/ 89 . Stop exercise at 04:00 RECOVERY 01:00 . . 104 . 147/ 86 . . RECOVERY 02:00 . . 103 . 137/ 88 . . RECOVERY 03:00 . . 98 . 143/ 92 . . RECOVERY 04:00 . . 97 . 143/ 92 . . RECOVERY 04:25 . . 101 . 143/ 92 . . Electronically signed by : Ender Keenan, 02/08/2020 12:11:43
== END ==
PROVIDERS: PCP Family Medicine; Visit Provider Internal Medicine Cardiovascular Disease
DX: R07.89 Other chest pain (principal); R06.02 Shortness of breath; I25.118 Atherosclerotic heart disease of native coronary artery with other forms of angina pectoris
CPT/HCPCS: 78452; 93017; 93306; A9502; J2785

== ENCOUNTER 2020-04-07 08:41 | Day surgery (SDC) | payer BC, SELFPAY ==
[2020-04-07] VITALS (12 sets, daily range): BP systolic 119–162; BP diastolic 70–94; PULSE 68–90; RESP 16–18; TEMP 36.7; O2SAT 91–97; BMI 30.8
--- NOTE | 2020-04-07 09:00 | IR_ITS ---
APPROVED REPORT Patient Location: Outpatient [employer] Computation Clerk: JUAN Franco RT (R) PROCEDURES Left heart catheterization Left ventriculogram Selective coronary angiogram INDICATION Coronary artery disease, Typical angina pectoris class III Informed consent was obtained prior to the procedure. COMPLICATIONS NONE Estimated Blood Loss: LESS THAN 10 ML TECHNIQUE One percent lidocaine used to anesthetize the right anterior aspect of the wrist. The right radial artery was accessed via the Seldinger technique. A 6 [place] sheath was placed in the right radial artery. 2.5 mg of verapamil, 800 mcg of nitroglycerin, 1mg Lidocaine and 5000 U Heparin were given through the arterial sheath. The trap catheter was also used to perform left heart catheterization, left ventriculogram and selective coronary angiogram. At the end of the procedure the sheath was removed good hemostasis was achieved using Traclet band, patient was transferred to the postop holding area in stable condition. ANGIOGRAPHIC RESULTS The left main artery Normal The left anterior descending artery Has a stent in the proximal through mid segment which is widely patent free of in-stent restenosis with excellent proximal distal transitioning. There are 2 small first and second diagonal arteries both 1.5 mm in diameter with the first diagonal artery having a proximal 70% stenosis in the second diagonal artery have an 80% stenosis. The LAD is a large vessel and wraps the apex The circumflex artery Is a large codominant system giving rise to 3 large obtuse marginal arteries the entire circumflex artery has mild less than 10% luminal irregularities The right coronary artery Is a codominant vessel with an anterior takeoff which has proximal and mid vessel 10 to 20% stenoses The HOLDEN ventriculogram reveals Hyperdynamic with ejection fraction of 80% The left ventricular end-diastolic pressure 15 mmHg IMPRESSION Patent coronary arteries as described above Hyperdynamic ventricle with sinus tachycardia during cardiac catheterization accompanied by mildly elevated LVEDP Moderate to severe disease in the first and second diagonal artery which are both small and not amenable to stenting PLAN 1. Medical management. Specifically recommend higher dose beta-blockers due to tachycardia and hyperdynamic ventricle. 2. Would also consider diltiazem or verapamil 3. Aggressive risk factor modification Electronically signed by : Rony Parra, 04/07/2020 10:50:57
[2020-04-07 09:22] LABS: Basophils % 0.6 % (0.1-2.0); Eosinophils # 0.2 K/mm3 (0.0-0.4); Eosinophils % 6.2 % (0.1-12.0); Hematocrit 40.4 % (42.0-52.0); Hemoglobin 14.1 g/dL (14.1-18.0); Lymphocytes # 1.1 K/mm3 (0.7-4.5); Lymphocytes % 29.9 % (10-50); Mean Corpuscular HGB Conc 34.9 g/dL (31.8-35.4); Mean Corpuscular Volume 91.7 fl (80-94); Mean Platelet Volume 8.2 fl (7.4-10.4); Monocytes # 0.2 K/mm3 (0.1-1.0); Monocytes % 4.3 % (1.7-9.3); Neutrophils # 2.2 K/mm3 (1.8-7.8); Platelet Count 130 K/mm3 (142-424); Red Blood Count 4.41 M/mm3 (4.60-6.20); Red Cell Distribution Width 13.5 % (11.5-17.5); White Blood Count 3.8 K/mm3 (4.8-10.8)
[2020-04-07 09:25] LABS: Chloride 105 mmol/L (98-107)
[2020-04-07 09:26] LABS: Potassium 4.2 mmoL/L (3.5-5.1); Sodium 141 mmol/L (136-145)
[2020-04-07 09:29] LABS: Anion Gap 13.2 mEq/L (5-15); Blood Urea Nitrogen 12 mg/dl (9-20); Calcium 9.3 mg/dl (8.4-10.2); Carbon Dioxide 27 mmol/L (22.0-30.0); Creatinine Clearance Estimated 233 mL/min (50-200); Estimated Glomerular Filt Rate 173 ml/min (>60); GFR (African American) 210 ML/MIN (>60); Glucose 303 mg/dl (74-100)
== END 2020-04-07 14:05 | disposition home or self-care (01) ==
PROVIDERS: PCP Family Medicine; Visit Provider Internal Medicine
DX: I25.118 Atherosclerotic heart disease of native coronary artery with other forms of angina pectoris (principal); E11.9 Type 2 diabetes mellitus without complications; E78.2 Mixed hyperlipidemia; I11.0 Hypertensive heart disease with heart failure; I50.30 Unspecified diastolic (congestive) heart failure; Z79.84 Long term (current) use of oral hypoglycemic drugs; Z79.02 Long term (current) use of antithrombotics/antiplatelets; Z95.5 Presence of coronary angioplasty implant and graft; Z79.899 Other long term (current) drug therapy
CPT/HCPCS: 80048; 85025; 93458; 99152; C1725; C1769; J1644; Q9967

== ENCOUNTER → 2020-04-15 08:20 | Outpatient (CLI) | payer BC, SELFPAY ==
--- NOTE | 2020-04-15 08:30 | US_ITS ---
PROCEDURE: US ABDOMEN LIMITED CLINICAL INDICATION: NONALCOHOLIC STEATOHEPATITIS COMPARISON: US US ABDOMEN LIMITED from 06/28/2019 FINDINGS: PANCREAS: Unremarkable. No obvious mass or abnormal fluid collection. No ductal dilatation LIVER: There is diffuse increased echogenicity of the liver with poor through transmission of sound consistent with a [place]ock steatosis. There is appropriate direction of blood flow within the portal vein which is upper limits of normal in size at 14 mm. No focal liver lesions are demonstrated. RIGHT KIDNEY: Unremarkable. Normal size and echogenicity. No hydronephrosis GALLBLADDER: No gallstones, gallbladder wall thickening, pericholecystic fluid, or biliary dilatation. IMPRESSION: Diffuse fatty liver Dictated b Panfilo Prater MD 04/15/2020 19:21 Panfilo Prater MD in [place] 04/15/2020 19:21
[2020-04-15 10:14] LABS: Basophils % 0.8 % (0.1-2.0); Eosinophils # 0.3 K/mm3 (0.0-0.4); Eosinophils % 7.3 % (0.1-12.0); Hematocrit 40.4 % (42.0-52.0); Hemoglobin 13.9 g/dL (14.1-18.0); Lymphocytes # 1.3 K/mm3 (0.7-4.5); Lymphocytes % 29.8 % (10-50); Mean Corpuscular HGB Conc 34.5 g/dL (31.8-35.4); Mean Corpuscular Volume 92.8 fl (80-94); Mean Platelet Volume 8.8 fl (7.4-10.4); Monocytes # 0.2 K/mm3 (0.1-1.0); Monocytes % 3.7 % (1.7-9.3); Neutrophils # 2.5 K/mm3 (1.8-7.8); Neutrophils % 58.3 % (37.0-80.0); Platelet Count 146 K/mm3 (142-424); Red Blood Count 4.35 M/mm3 (4.60-6.20); Red Cell Distribution Width 13.5 % (11.5-17.5); White Blood Count 4.3 K/mm3 (4.8-10.8)
[2020-04-15 10:36] LABS: Chloride 101 mmol/L (98-107); Potassium 4.4 mmoL/L (3.5-5.1); Sodium 138 mmol/L (136-145)
[2020-04-15 10:38] LABS: Alanine Aminotransferase 64 U/L (12-78); Aspartate Amino Transferase 72 U/L (17-59); Blood Urea Nitrogen 14 mg/dl (9-20); Estimated Glomerular Filt Rate 118 ml/min (>60); GFR (African American) 142 ML/MIN (>60)
[2020-04-15 10:39] LABS: Albumin Level 4.2 g/dl (3.5-5.0); Albumin/Globulin Ratio 1.6 (1.1-1.8); Alkaline Phosphatase 87 U/L (38-126); Anion Gap 13.4 mEq/L (5-15); Bilirubin,Total 0.5 mg/dl (0.2-1.3); Calcium 9.4 mg/dl (8.4-10.2); Carbon Dioxide 28 mmol/L (22.0-30.0); Globulin 2.7 g/dL (1.3-3.2); Glucose 277 mg/dl (74-100); Total Protein,Serum 6.9 g/dl (6.3-8.2)
[2020-04-18 05:08] LABS: ALT (SGPT) P5P 58 IU/L (0-55); AST (SGOT) P5P 66 IU/L (0-40); Alpha 2-Macroglobulins, Qn 277 mg/dL (110-276); Apolipoprotein A-1 94 mg/dL (101-178); Bilirubin, Total 0.4 mg/dL (0.0-1.2); Cholesterol, Total 149 mg/dL (100-199); Fibrosis Score 0.59 (0.00-0.21); GGT 71 IU/L (0-65); Glucose 281 mg/dL (65-99); Haptoglobin 126 mg/dL (29-370); NASH Score 0.75 (0.25); Steatosis Score 0.87 (0.00-0.30); Triglycerides 229 mg/dL (0-149)
== END ==
PROVIDERS: Nurse Practitioner Family; PCP Family Medicine; Visit Provider Internal Medicine Gastroenterology
DX: K75.81 Nonalcoholic steatohepatitis (NASH) (principal)
CPT/HCPCS: 36415; 76705; 80053; 85025

== ENCOUNTER → 2021-11-17 11:03 | Outpatient (CLI) | payer BC, SELFPAY ==
--- NOTE | 2021-11-17 11:13 | CT_ITS ---
FINAL REPORT CLINICAL HISTORY: LOW BACK PAIN,STEATOHEPATITIS COMPARISON: 09/26/2019 FINDINGS: Technique: Axial images through the abdomen and pelvis were performed by computed tomography. This study was performed with techniques to keep radiation doses as low as reasonably achievable (ALARA). Individualized dose reduction techniques using automated exposure control or adjustment of mA and/or kV according to the patient's size were employed. Abdomen: The lung bases are clear. There is fatty infiltration of the liver. There are probable stones or sludge in the gallbladder. The spleen is unremarkable. The pancreas is normal. There is bilateral adrenal gland enlargement which is stable, favor adenomas. The aorta is normal in caliber. There are several bilateral nonobstructing renal stones measuring up to 7 mm on the right. There is no hydronephrosis. There is a small left inguinal hernia containing fat. Pelvis: The appendix is unremarkable. The urinary bladder is unremarkable. There is no free fluid or adenopathy. IMPRESSION: Probable stones or sludge in the gallbladder. Gallbladder ultrasound could further evaluate. Bilateral nephrolithiasis. Fatty liver. Reviewed, Interpreted and Dictated by Mathieu Rodriguez III, MD Transcribed by Allyn Torres Authenticated by Mathieu Rodriguez III, MD on 11/17/2021 12:59:20 PM [facility]
== END ==
PROVIDERS: PCP Family Medicine; Visit Provider Family Medicine
DX: K75.81 Nonalcoholic steatohepatitis (NASH) (principal); M54.50 Low back pain, unspecified
CPT/HCPCS: 74176

== ENCOUNTER → 2022-02-15 09:20 | Outpatient (CLI) | payer BC, SELFPAY ==
[2022-02-15 10:02] LABS: Basophils # 0.1 K/mm3 (0-0.2); Basophils % 1.5 % (0.1-2.0); Eosinophils # 1.1 K/mm3 (0.0-0.4); Eosinophils % 14.6 % (0.1-12.0); Hematocrit 42.5 % (42.0-52.0); Hemoglobin 14.8 g/dL (14.1-18.0); Lymphocytes # 2.4 K/mm3 (0.7-4.5); Lymphocytes % 31.6 % (10-50); Mean Corpuscular HGB Conc 34.9 g/dL (31.8-35.4); Mean Corpuscular Hemoglobin 32.2 pg (27.0-31.2); Mean Corpuscular Volume 92.2 fl (80-94); Mean Platelet Volume 8.9 fl (7.4-10.4); Monocytes # 0.3 K/mm3 (0.1-1.0); Monocytes % 3.9 % (1.7-9.3); Neutrophils # 3.6 K/mm3 (1.8-7.8); Neutrophils % 48.4 % (37.0-80.0); Platelet Count 213 K/mm3 (142-424); Red Blood Count 4.61 M/mm3 (4.60-6.20); White Blood Count 7.4 K/mm3 (4.8-10.8)
[2022-02-15 10:29] LABS: Chloride 103 mmol/L (98-107); Potassium 4.1 mmoL/L (3.5-5.1); Sodium 138 mmol/L (136-145)
[2022-02-15 10:32] LABS: Alanine Aminotransferase 51 U/L (12-78); Albumin Level 4.9 g/dl (3.5-5.0); Albumin/Globulin Ratio 1.7 (1.1-1.8); Alkaline Phosphatase 91 U/L (38-126); Anion Gap 16.1 mEq/L (5-15); Aspartate Amino Transferase 55 U/L (17-59); Bilirubin,Total 0.7 mg/dl (0.2-1.3); Blood Urea Nitrogen 15 mg/dl (9-20); Calcium 10.2 mg/dl (8.4-10.2); Carbon Dioxide 23 mmol/L (22.0-30.0); Estimated Glomerular Filt Rate 117 ml/min (>60); GFR (African American) 141 ML/MIN (>60); Globulin 2.9 g/dL (1.3-3.2); Glucose 178 mg/dl (74-100); Total Protein,Serum 7.8 g/dl (6.3-8.2)
== END ==
PROVIDERS: PCP Family Medicine; Visit Provider Nurse Practitioner Family
DX: R10.84 Generalized abdominal pain (principal); R11.2 Nausea with vomiting, unspecified; R19.4 Change in bowel habit; R19.5 Other fecal abnormalities; R19.7 Diarrhea, unspecified; K62.5 Hemorrhage of anus and rectum; K21.9 Gastro-esophageal reflux disease without esophagitis; R14.0 Abdominal distension (gaseous); K75.81 Nonalcoholic steatohepatitis (NASH); R63.4 Abnormal weight loss; R68.81 Early satiety
CPT/HCPCS: 36415; 80053; 85025

== ENCOUNTER → 2022-05-20 09:27 | Outpatient (CLI) | payer BC, SELFPAY ==
--- NOTE | 2022-05-20 09:30 | CT_ITS ---
FINAL REPORT TECHNIQUE: Axial images through the abdomen and pelvis were performed without contrast.This study was performed with techniques to keep radiation doses as low as reasonably achievable, (ALARA). Individualized dose reduction techniques using automated exposure control or adjustment of mA and/or kV according to the patient's size were employed. CLINICAL HISTORY: LLQ PAIN, n/v/d for 1 week COMPARISON: 11/17/2021 FINDINGS: ABDOMEN: The lung bases are clear. The heart size is normal. Limited images of the liver demonstrate fatty infiltration. Gallstones are present. The spleen is normal. There is bilateral adrenal enlargement, favor adenomas. The aorta is normal in caliber. There is no significant free fluid or adenopathy. There are multiple, bilateral nonobstructing renal stones measuring up to 3 mm. There is no hydronephrosis. Several, small low-attenuation masses are seen in the kidneys bilaterally which are incompletely characterized without contrast. However, on the prior, contrast enhanced exam, several small renal cysts are noted. There is a small umbilical hernia containing fat. Wall thickening is seen of the sigmoid colon of uncertain significance which may represent colitis. PELVIS: The appendix is normal. There is a small left inguinal hernia containing fat. The urinary bladder is unremarkable. There is no significant free fluid or adenopathy. IMPRESSION: Bilateral, nonobstructing renal stones. Wall thickening of the sigmoid colon which may represent colitis. Cholelithiasis. Reviewed, Interpreted and Dictated by Mathieu Rodriguez III, MD Transcribed by Mirella Irby Authenticated and [facility]
== END ==
PROVIDERS: PCP Family Medicine; Visit Provider Physician Assistant
DX: R10.32 Left lower quadrant pain (principal)
CPT/HCPCS: 74176

== ENCOUNTER → 2022-05-24 10:30 | Outpatient (CLI) | payer BC, SELFPAY ==
[2022-05-24 10:39] LABS: Adenovirus F 40/41, stool Not Detected (NotDetected); Astrovirus Not Detected (NotDetected); Campylobacter Not Detected (NotDetected); Clostridium Difficile A/B, PCR Not Detected (NotDetected); Cryptosporidium Not Detected (NotDetected); Cyclospora Cayetanesis Not Detected (NotDetected); Entamoeba histolytica Not Detected (NotDetected); Enteroaggregative E coli Not Detected (NotDetected); Enteropathogenic E coli Not Detected (NotDetected); Enterotoxigenic E coli Not Detected (NotDetected); Giardia lamblia Not Detected (NotDetected); Norovirus Not Detected (NotDetected); Plesimonas Shigalloides, PCR Not Detected (NotDetected); Rotavirus A Not Detected (NotDetected); Salmonella, PCR Not Detected (NotDetected); Sapovirus Not Detected (NotDetected); Shiga-like toxin E coli Not Detected (NotDetected); Shigella Enterovasive E coli Not Detected (NotDetected); Vibrio Cholerae Not Detected (NotDetected); Vibrio, PCR Not Detected (NotDetected); Yersinia Entercolitica, PCR Not Detected (NotDetected)
== END ==
PROVIDERS: PCP Family Medicine; Visit Provider Physician Assistant
DX: K58.9 Irritable bowel syndrome, unspecified (principal)
CPT/HCPCS: 87507

== ENCOUNTER → 2022-09-09 16:04 | Outpatient (CLI) | payer BC, SELFPAY ==
[2022-09-09 16:44] LABS: Blood Urea Nitrogen 31 mg/dl (9-20); Estimated Glomerular Filt Rate 77 ml/min (>60); GFR (African American) 93 ML/MIN (>60)
== END ==
PROVIDERS: PCP Psychiatry & Neurology Sleep Medicine; Visit Provider Surgery
DX: Z01.812 Encounter for preprocedural laboratory examination (principal); R10.9 Unspecified abdominal pain
CPT/HCPCS: 36415; 82565; 84520

== ENCOUNTER → 2022-09-10 09:09 | Outpatient (CLI) | payer BC, SELFPAY ==
--- NOTE | 2022-09-10 09:09 | CT_ITS ---
FINAL REPORT TECHNIQUE: After the administration of oral and intravenous contrast, axial images were obtained through the abdomen and pelvis by computed tomography. The study was performed with techniques to keep radiation dose as low as reasonably achievable, (ALARA). Individual dose reduction techniques using automated exposure control or adjustment of mA and/or kV according to the patient's size were employed. CLINICAL HISTORY: lower abdominal pain COMPARISON: 05/20/2022 FINDINGS: Abdomen: The lung bases are clear. There are questionable small gallstones. There is a less than 1 cm probable cyst in the right hepatic lobe. The spleen is unremarkable. The adrenals are normal. The pancreas is unremarkable. There are lateral adrenal nodules which are stable, likely represent adenomas. There are several bilateral nonobstructing renal stones measuring less than 3 mm. There are several small left renal cysts. The aorta is normal in caliber. There is no free fluid or adenopathy. There is a small umbilical hernia containing fat. Small inguinal hernias containing fat are also identified. Pelvis: The appendix is normal. The urinary bladder is unremarkable. There is no free fluid or adenopathy. IMPRESSION: Bilateral nonobstructing renal stones. Hernias as detailed above. Reviewed, Interpreted and Dictated by Mathieu Rodriguez III, MD Transcribed by Allyn Torres Authenticated and [facility]
== END ==
PROVIDERS: PCP Family Medicine; Visit Provider Surgery
DX: R10.9 Unspecified abdominal pain (principal)
CPT/HCPCS: 74177; Q9967

== ENCOUNTER → 2022-09-30 06:22 | Outpatient (CLI) | payer BC, SELFPAY ==
--- NOTE | 2022-09-30 06:23 | CA_ITS ---
APPROVED REPORT EXAM: Comprehensive 2D, Doppler, and color-flow Echocardiogram Boiler/Chiller Operator: QUINTON Ervin, RVS Ht: 5 ft 10 in Wt: 172lbs BSA: 1.96 BP: 125/87 mmHg Indications: SOA, CAD-coronary stent, Pre-op Echo Enhancing Agent Comments: limited windows due to lung impedence 2D Dimensions IVSd 1.03 cm LVEF (Visual) 74.30 % PWd 1.09 cm LA Volume 47.00 mL LVDd 4.83 cm LA Volume Index 23.40 mL/m2 (M/F) 16-34 LVDs 2.74 cm Aortic Root 2.85 cm Left Atrium 2.81 cm LVOT 2.07 cm (M/F) 1.5-2.5 M-Mode Dimensions LA Diam 3.39 cm (1.9-4.0) Ao Diam 3.58 cm (2.0-3.7) EPSs 0.80 cm TAPSE 1.82 (<1.7) LV Diastology E Decel Time 287.00 (160-240 msec) E/A Ratio 0.86 MED E' 7.80 (< 7 cm/sec) MED A' 13.50 cm/s E'/MED E' Ratio 8.76 (>14) LAT E' 7.70 (<10 cm/sec) LAT A' 9.90 cm/s E/LAT E' Ratio 8.87 (>14) Aortic Valve LVOT Max 108.00 (70-110 cm/s) LVOT VTI 21.50 cm AoV Peak Juan. 118.00 (50-130 cm/s) AO Peak GR. 5.60 mmHg AO Mean GR. 2.80 (<5 mmHg) AO VTI 17.93 (18-25 cm) DHARMESH (VTI) 4.04 (2.5-4.5 cm2) Mitral Valve MV A Velocity 80.00 (40-130 cm/s) E/A Ratio 0.86 MV Decel. Time 287.00 (160-240 ms) Pulmonary Valve PV Peak Velocity 85.00 (50-150 cm/s) Electronically signed by : Ender Keenan MD 10/01/2022 13:32:11
--- NOTE | 2022-09-30 06:23 | NM_ITS ---
APPROVED REPORT Exam: Nuclear Stress Test Indication: short of breath..fatigue Patient Location: Outpatient Stress Tech: Shalini Gonzalez [place] Tech:Shivani Hoffman MARIELABhumika RT(R)(N) Ht: 2 ft 10 in Wt: 174 lbs HR: 91 bpm BP: 138/93 mmHg BSA: 1.17 m2 TID: 1.20 BMI: 105.8 History: short of breath..fatigue Procedure: Patient received a 0.4 mg of intravenous Lexiscan, resting heart rate 91 bpm, resting blood pressure 138/93 mmHg, with Lexiscan maximum heart rate achived was 126 bpm which is Less than 85 % of the maximum predicted heart rate and blood pressure was 155/93 mmHg. With Lexiscan, patient denied any complaint of chest pain. Electrocardiogram Resting electrocardiogram shows sinus rhythm with Lexiscan there is less than 1.[address] segment depression noted from the baseline EKG. The EKG portion of the Lexiscan is nondiagnostic. Cardiac Stress and Resting SPECT Images: Cardiac Stress and Resting SPECT images were obtained using technetium 99m Myoview 30.9 mCi stress and 10.32 mCi at rest. Gated SPECT for analysis of segmental wall motion and calculation of the ejection fraction also done. Prone images were also obtained. Cardiac prone images show uniform myocardial activity without segmental perfusion abnormality, computer derived ejection fraction is 54% with no regional wall motion abnormality, right ventricle is moderately enlarged with normal contractility. Conclusion: 1. The EKG portion of the Lexiscan is nondiagnostic. 2. No scintigraphic evidence of reversible ischemia seen, computer derived ejection fraction 54% with no regional wall motion abnormality, right ventricle is moderately enlarged with normal contractility. Electronically signed by : Ender Keenan MD 10/01/2022 12:47:20
--- NOTE | 2022-09-30 06:23 | CA_ITS ---
APPROVED REPORT Exam: Pharmacologic Technologist: Shalini Mendoza, Ht: 5 ft 10 in Wt: 174 lbs BSA: 1.97 m2 HR: 87 bpm BP: 138/93 mmHg Indications: SOA Medical History Medications: Aspirin,,,,, Metoprolol,,,,, Metformin,,,,, Pantoprazole,,,,, Atorvastatin,,,,, Pramipexole,,,,, ReQUIP,,,,, DOxazosin,,,,, Sertraline,,,,, DilTiazem,,,,, PEPcid,,,,, IsMO,,,,, Stress Test Details Test: LEXISCAN Reason for pharmacologic stress test: physical limitation. HR Resting HR: 91 bpm Max Heart Rate (APMHR): 163.549253 bpm Max HR Achieved: 126 bpm Target HR (85% APMHR): 138.996922 bpm % of APMHR: 77.30 Recovery HR: 108 bpm BP Resting BP: 138/93 mmHg Max BP: 155/93 mmHg Recovery BP: 126.0/93.0 mmHg ECG Resting ECG: NSR, NS IVCD Clinical Exercise duration: 04:00 min Highest Stage Achieved: Exercise capacity: 1.0 METs Stress ECG Conclusion Symptoms: Head discomfort. No CP. Arrhythmias/Ectopy: None ST-T Changes: Inferior T wave inversion with apprx. 0.5mm of horizontal downsloping ST depression. Conclusion: Non-diagnostic Lexiscan stress. Myoview images reported separately. Test Summary REST . . . . . . . Resting REST 05:41 . . 91 . 138/ 93 . . Stage 1 01:00 . . 118 . . . . Stage 2 01:00 . . 125 . 141/ 87 . . Stage 3 01:00 . . 116 . 140/ 92 . . Stage 4 01:00 . . 110 . 155/ 93 . Stop exercise at 04:00 RECOVERY 01:00 . . 107 . 132/ 90 . . RECOVERY 02:00 . . 101 . 132/ 90 . . RECOVERY 03:00 . . 109 . 132/ 90 . . RECOVERY 03:52 . . 105 . 126/ 93 . . Electronically signed by : Ender Keenan MD 10/01/2022 12:05:05
== END ==
PROVIDERS: PCP Family Medicine; Visit Provider Nurse Practitioner
DX: Z01.810 Encounter for preprocedural cardiovascular examination (principal); I25.118 Atherosclerotic heart disease of native coronary artery with other forms of angina pectoris; I10 Essential (primary) hypertension; E78.2 Mixed hyperlipidemia; Z95.5 Presence of coronary angioplasty implant and graft
CPT/HCPCS: 78452; 93017; 93306; A9502; J2785

== ENCOUNTER 2022-10-25 08:23 | Day surgery (SDC) | payer BC, SELFPAY ==
[2022-10-22 10:23] VITALS: BMI 24.0
[2022-10-25] VITALS (11 sets, daily range): BP systolic 129–146; BP diastolic 78–91; PULSE 80–99; RESP 14–18; TEMP 36.1–43; O2SAT 93–97
--- NOTE | 2022-10-25 08:21 | EXP.GEN.HP ---
HPI HPI HPI: Patient presents for laparoscopy.? He is a 56-year-old referred by Dr. Jeffries and Dr. Murcia for possible hernia and seen in the office on 09/02/22.? I had seen the patient in the office in November 2021 for possible gallbladder.? At that time he had had a gallbladder ultrasound done which revealed normal gallbladder with fatty liver.? He also had a positive Cologuard.? He had previous extensive work-up at this facility with gastroenterology for nonalcoholic steatohepatitis.? He has followed up with gastroenterology in [place] and has had a couple of colonoscopies. He describes several month history of left abdominal pain to the left and slightly inferior to his umbilicus.? This has been persistent.? He states that he was straining and stretching and felt a pop sensation.? Since then he has had pain in a similar location on the right abdomen from his umbilicus laterally and subsequently across his entire lower mid abdomen in a distribution from the umbilicus laterally.? This is described as quite severe. I was unable to palpate any definite hernia in the location when he was seen in the office and therefore I had him undergo a follow-up CT scan.? This revealed findings of bilateral nonobstructing stones.? This has been previously noted.? CT report reveals a small umbilical hernia containing fat.? Also radiology notes small inguinal hernias containing fat are also identified. I studied the CT scan images and compared this to prior imaging.? He does have a tiny umbilical hernia.? There may be possibly some stranding in the subcutaneous tissue at the site of a normal Spigellian hernia.? Initially I did not feel the inguinal hernias noted on imaging were any clinical significance as this was not necessarily concordant with his symptomatology.? I am unsure as to the etiology of his symptoms.? He does, however, have bilateral inguinal hernias with the left side being larger than the right and a small umbilical hernia. I discussed potential surgical investigation and correction of any surgically correctable pathology.? I had discussed proceeding with diagnostic laparoscopy to evaluate the umbilical hernia and evaluate for any potential atypical abdominal wall hernia (Spigellian hernia).? I informed him that this may not alleviate his symptoms.? However, by performing laparoscopy alternate etiology including atypical occult abdominal wall hernias as well as inguinal hernias and liver could all be evaluated.? Of note, patient had previous history of unstable angina and had previous drug-eluting stents placed for coronary artery disease. He did undergo cardiology assessment and was cleared for surgery. In the preoperative area prior to planned procedure the patient expressed significant concern regarding the inguinal hernias. He did describe left lower quadrant pain radiating to the left scrotum. He was re-examined. He felt the inguinal hernias, particularly the left, were possibly contributing to his symptoms. [facility] Disclaimer: The information contained in this section may have been updated after the patient was seen, as this information can be updated by other users. Medical History Abdominal pain Encounter for pre-operative cardiovascular clearance History of fatty infiltration of liver History of kidney stones Typical angina Surgical History History of carpal tunnel release History of colonoscopy History of coronary artery stent placement Family History No significant family history Social History Smoking Status: Never smoker alcohol intake: current substance use type: denies use current occupational status: employed Travel in the last 8 weeks: Inside the [place] household members: spouse housing: h
[2022-10-25 09:07] LABS: POC Glucose,Bedside 128 (70-110)
[2022-10-25 09:15] LABS: Basophils # 0.1 K/mm3 (0-0.2); Basophils % 0.8 % (0.1-2.0); Eosinophils # 0.3 K/mm3 (0.0-0.4); Eosinophils % 4.3 % (0.1-12.0); Hematocrit 47.5 % (42.0-52.0); Hemoglobin 16.1 g/dL (14.1-18.0); Lymphocytes # 2.2 K/mm3 (0.7-4.5); Lymphocytes % 33.2 % (10-50); Mean Corpuscular HGB Conc 33.8 g/dL (31.8-35.4); Mean Corpuscular Hemoglobin 31.1 pg (27.0-31.2); Mean Corpuscular Volume 91.9 fl (80-94); Mean Platelet Volume 8.5 fl (7.4-10.4); Monocytes # 0.2 K/mm3 (0.1-1.0); Monocytes % 3.5 % (1.7-9.3); Neutrophils # 3.8 K/mm3 (1.8-7.8); Neutrophils % 58.2 % (37.0-80.0); Platelet Count 224 K/mm3 (142-424); Red Blood Count 5.17 M/mm3 (4.60-6.20); Red Cell Distribution Width 13.4 % (11.5-17.5); White Blood Count 6.5 K/mm3 (4.8-10.8)
[2022-10-25 09:26] LABS: Prothrombin Time 10.8 seconds (10.1-12.5)
[2022-10-25 09:35] LABS: Alanine Aminotransferase 34 U/L (12-78); Albumin Level 5.1 g/dl (3.5-5.0); Albumin/Globulin Ratio 1.9 (1.1-1.8); Alkaline Phosphatase 61 U/L (38-126); Anion Gap 13.2 mEq/L (5-15); Aspartate Amino Transferase 33 U/L (17-59); Bilirubin,Total 0.6 mg/dl (0.2-1.3); Blood Urea Nitrogen 15 mg/dl (9-20); Calcium 9.7 mg/dl (8.4-10.2); Carbon Dioxide 29 mmol/L (22.0-30.0); Chloride 103 mmol/L (98-107); Creatinine Clearance Estimated 125 mL/min (50-200); Estimated Glomerular Filt Rate 116 ml/min (>60); GFR (African American) 141 ML/MIN (>60); Globulin 2.7 g/dL (1.3-3.2); Glucose 142 mg/dl (74-100); Potassium 4.2 mmoL/L (3.5-5.1); Sodium 141 mmol/L (136-145); Total Protein,Serum 7.8 g/dl (6.3-8.2)
--- NOTE | 2022-10-25 10:34 | EXP.ANES.CKL ---
[facility] Disclaimer: The information contained in this section may have been updated after the patient was seen, as this information can be updated by other users. Medical History Abdominal pain Encounter for pre-operative cardiovascular clearance History of fatty infiltration of liver History of kidney stones Typical angina Surgical History History of carpal tunnel release History of colonoscopy History of coronary artery stent placement Family History Other No significant family history Social History Smoking Status: Never smoker alcohol intake: current substance use type: denies use current occupational status: employed Travel in the last 8 weeks: Inside the [place] household members: spouse housing: house current occupational exposures/hazards: Yes caffeine: Yes [facility] Anesthesia Checklist Patient Identification Patient Identification: Arm Band Structural Data Admitted From: Home Planned Operative Procedure/s: Laparoscopic Umbilical Hernia Repair, Bilateral Inguinal Hernia Repair Consent for Planned Operative Procedure(s) Verified: Yes Verified Documents: Surgical Consent and History and Physical NPO Status Verified Time NPO: 00:00 Additional verifications Anesthesia Reactions: No Hx Blood Transfusions: No Blood Transfusion Reaction: No Airway Assessment C-Spine Mobility Assessed: Yes TMJ Mobility Assessed: Yes Dentition: Good Dentition Neurological Assessment Level of Consciousness: Awake and Alert Anesthesia Plan Anesthesia Risk discussed: Yes Anesthesia Plan: Verified ASA Class: III Anesthesia Type: General
--- NOTE | 2022-10-25 12:10 | EXP.OP.NOTE ---
Date of procedure: 10/25/22 Pre-op Diagnosis:: Lower abdominal pain Post-op Diagnosis:: Bilateral inguinal hernia Tiny umbilical hernia Procedure performed:: Laparoscopic bilateral inguinal hernia repair (TEPP) Open umbilical hernia repair with placement of small sized Bard Ventralex mesh Surgeon:: Mathieu Medrano MD INSPECTOR BALANCE BRIDGE:: Guillaume Corea Anesthesia: GETA Estimated blood loss (mL): 15 Clinical Note:: Patient presents for laparoscopy.? He is a 56-year-old referred by Dr. Jeffries and Dr. Murcia for possible hernia and seen in the office on 09/02/22.? I had seen the patient in the office in November 2021 for possible gallbladder.? At that time he had had a gallbladder ultrasound done which revealed normal gallbladder with fatty liver.? He also had a positive Cologuard.? He had previous extensive work-up at this facility with gastroenterology for nonalcoholic steatohepatitis.? He has followed up with gastroenterology in [place] and has had a couple of colonoscopies. He describes several month history of left abdominal pain to the left and slightly inferior to his umbilicus.? This has been persistent.? He states that he was straining and stretching and felt a pop sensation.? Since then he has had pain in a similar location on the right abdomen from his umbilicus laterally and subsequently across his entire lower mid abdomen in a distribution from the umbilicus laterally.? This is described as quite severe. I was unable to palpate any definite hernia in the location when he was seen in the office and therefore I had him undergo a follow-up CT scan.? This revealed findings of bilateral nonobstructing stones.? This has been previously noted.? CT report reveals a small umbilical hernia containing fat.? Also radiology notes small inguinal hernias containing fat are also identified. ? I studied the CT scan images and compared this to prior imaging.? He does have a tiny umbilical hernia.? There may be possibly some stranding in the subcutaneous tissue at the site of a normal Spigellian hernia.? Initially I did not feel the inguinal hernias noted on imaging were any clinical significance as this was not necessarily concordant with his symptomatology.? I am unsure as to the etiology of his symptoms.? He does, however, have bilateral inguinal hernias with the left side being larger than the right and a small umbilical hernia.? I discussed potential surgical investigation and correction of any surgically correctable pathology.? I had discussed proceeding with diagnostic laparoscopy to evaluate the umbilical hernia and evaluate for any potential atypical abdominal wall hernia (Spigellian hernia).? I informed him that this may not alleviate his symptoms.? However, by performing laparoscopy alternate etiology including atypical occult abdominal wall hernias as well as inguinal hernias and liver could all be evaluated.? Of note, patient had previous history of unstable angina and had previous drug-eluting stents placed for coronary artery disease.? He did undergo cardiology assessment and was cleared for surgery. In the preoperative area prior to planned procedure the patient expressed significant concern regarding the inguinal hernias.? He did describe left lower quadrant pain radiating to the left scrotum.? He was re-examined.? He felt the inguinal hernias, particularly the left, were possibly contributing to his symptoms. I reviewed his CT scan images once again. I had a long discussion with the patient in the preoperative area.? It was felt that it is possible that the inguinal hernias are contributing to his symptoms.? However, given the fact that on examination and imaging the left inguinal hernia is larger than the right and he has left lower abdominal pain it may be reasonable to proceed with repair.? Therefore the planned procedure will be altered for laparoscopic bilateral inguinal hernia repair with repair of umbilical hernia and likely completion diagnostic laparoscopy.?
--- NOTE | 2022-10-25 12:18 | EXP.ANES.I ---
[facility] Anesthesia Record Part I Anesthesia Record I Intake, IV Amount: 1,400 Estimated blood loss (mL): 10 Urine output (mL): 100 Blood Products used (#): none Blood Pressure: 146/91 SaO2: 94 Pulse Rate: 95 Respiratory Rate: 16 Temperature: 97.7 F Patient is:: Drowsy and Stable Stable to PACU at:: 12:15
[2022-10-25 12:29] LABS: POC Glucose,Bedside 192 (70-110)
--- NOTE | 2022-10-25 13:19 | EXP.ANES.II ---
[facility] Anesthesia Record Part II Anesthesia Record Part II Discharge Time: 12:45 Destination: Surgical Day Care (OP Surgery) PACU nurse assessment reviewed?: Yes Patient Condition:: Good Anesthesia Complications:: None Swallowing reflex intact?: Yes Cyanosis?: No Blood Pressure: 134/86 Pulse Rate: 93 Temperature: 98.2 F Mental Status: Alert & Oriented Pain level:: 0 Nausea and/or vomitting:: None Intake, IV Amount: 0
[2022-10-25 16:40] LABS: Microscopic,Cath URINE MICROSCOPIC (MICROSCOPIC)
[2022-10-25 16:53] LABS: Appearance,Urine/Cath CLEAR (Clear); Bilirubin,Cath Negative (Negative); Blood, Urine/Cath Negative (Negative); Color,Urine/Cath YELLOW (Yellow); Glucose,Urine/Cath (UA) 2+ (Negative); Ketones,Urine/Cath Negative (Negative); Leukocyte Esterase,Cath Negative (Negative); Nitrate,Cath Negative (Negative); Protein,Urine/Cath 1+ (Negative); Specific Gravity, Urine/Cath >= 1.030 (1.005-1.030); Urobilinogen,Cath 0.2 EU/dl (0.2)
[2022-10-25 16:57] LABS: Squamous Epithelial Ur./Cath Occasional #/hpf (0-5)
== END 2022-10-25 13:16 | disposition home or self-care (01) ==
PROVIDERS: PCP Family Medicine; Visit Provider Surgery
PROC: 0WQF4ZZ Repair Abdominal Wall, Percutaneous Endoscopic Approach (ICD-10-PCS; CPT 49650; principal; 2022-10-25 10:00)
DX: K40.20 Bilateral inguinal hernia, without obstruction or gangrene, not specified as recurrent (principal); K42.9 Umbilical hernia without obstruction or gangrene; Z79.899 Other long term (current) drug therapy; E11.9 Type 2 diabetes mellitus without complications
CPT/HCPCS: 49650; 49591; 80053; 81001; 82962; 85025; 85610; 96374; C1781; J2405

== ENCOUNTER 2022-12-21 20:47 | Emergency (ER) | payer BC, SELFPAY ==
[2022-12-21 20:55] VITALS: BP 129/89; PULSE 97; RESP 16; TEMP 36.4; O2SAT 97; BMI 23.3
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
[2022-12-21 21:30] VITALS: BP 126/80; PULSE 90; O2SAT 96
[2022-12-21 22:00] VITALS: BP 136/84; PULSE 87; O2SAT 96
[2022-12-21 22:30] VITALS: BP 123/73; PULSE 89; O2SAT 96
[2022-12-21 23:00] VITALS: BP 142/86; PULSE 88; O2SAT 96
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
[2022-12-21 23:18] VITALS: BP 119/72; PULSE 73; RESP 15; TEMP 36.8; O2SAT 98
== END 2022-12-21 23:25 | disposition home or self-care (01) ==
PROVIDERS: Emergency Provider Emergency Medicine; PCP Family Medicine
DX: S99.922A Unspecified injury of left foot, initial encounter (principal); E11.40 Type 2 diabetes mellitus with diabetic neuropathy, unspecified; W20.8XXA Other cause of strike by thrown, projected or falling object, initial encounter
CPT/HCPCS: 73630; 99283

== ENCOUNTER → 2023-04-18 10:11 | Outpatient (CLI) | payer BC, SELFPAY ==
[2023-04-18 11:17] LABS: Alanine Aminotransferase 32 U/L (12-78); Alkaline Phosphatase 82 U/L (38-126); Aspartate Amino Transferase 34 U/L (17-59); Bilirubin,Indirect 0.3 mg/dL (0.0-0.9); Bilirubin,Total 0.3 mg/dl (0.2-1.3); Bilirubin,Unconjugated 0.4 mg/dL (0.0-1.1); Chol/HDL Ratio 3.8 (1-3.5); Cholesterol 203 mg/dl (140-200); HDL Cholesterol 53 mg/dl (40-60); Total Protein,Serum 7.9 g/dl (6.3-8.2); Triglycerides 104 mg/dl (30-150); VLDL Cholesterol 21 mg/dL (0-40)
[2023-04-18 11:28] LABS: Direct LDL Cholesterol 124.79 mg/dL (100-129)
[2023-04-18 11:53] LABS: INR 0.98 (0.9-1.1); Prothrombin Time 10.6 seconds (10.1-12.5)
== END ==
PROVIDERS: PCP Family Medicine; Visit Provider Internal Medicine
DX: I25.10 Atherosclerotic heart disease of native coronary artery without angina pectoris (principal); Z01.818 Encounter for other preprocedural examination; I10 Essential (primary) hypertension; E11.9 Type 2 diabetes mellitus without complications; E78.5 Hyperlipidemia, unspecified; Z95.5 Presence of coronary angioplasty implant and graft
CPT/HCPCS: 36415; 80061; 80076; 85610

== ENCOUNTER → 2023-04-27 08:23 | Outpatient (CLI) | payer BC, SELFPAY ==
--- NOTE | 2023-04-27 08:24 | CT_ITS ---
FINAL REPORT CLINICAL HISTORY: Lower quad pain, picked up heavy object while on weight restriction from last hernia surgery. pain since COMPARISON: 09/10/2022 FINDINGS: CT OF THE ABDOMEN AND PELVIS WITH CONTRAST Axial CT images of the abdomen and pelvis were obtained after the administration of IV contrast. Coronal and sagittal reformatted images were also obtained and reviewed. This study was performed with techniques to keep radiation doses as low as reasonably achievable (ALARA). Individualized dose reduction techniques using automated exposure control or adjustment of mA and/or kV according to the patient's size were employed. Abdomen: The lung bases are clear. The heart is normal in size. There are several small hepatic cysts, unchanged since the prior CT. The spleen is unremarkable. There are bilateral adrenal nodules, stable, consistent with adrenal adenomas. The pancreas has an unremarkable appearance. There are bilateral renal stones present, the largest on the right measuring 6 mm, the largest on the left also measuring 6 mm. There are small bilateral renal cysts present as well. The aorta is normal in caliber. There is no free fluid or adenopathy. No mass or abnormal fluid collection is seen. Pelvis: The appendix is normal in appearance. The urinary bladder is unremarkable. No inflammatory process is seen. There is no evidence of mass or adenopathy. There is no evidence of bowel obstruction. No evidence of a hernia is identified. IMPRESSION: Bilateral nonobstructing renal stones, the largest measuring up to 6 mm. There are small bilateral renal cysts present as well. Bilateral adrenal nodules, stable, consistent with adenomas. No inguinal or umbilical hernias are identified. Reviewed, Interpreted and Dictated by Mathieu Rodriguez III, MD Transcribed by Cristine Alvarez Authenticated and [facility]
[2023-04-27 08:59] LABS: Blood Urea Nitrogen 12 mg/dl (9-20); Estimated Glomerular Filt Rate 139 ml/min (>60); GFR (African American) 168 ML/MIN (>60)
== END ==
PROVIDERS: PCP Family Medicine; Visit Provider Surgery
DX: R10.32 Left lower quadrant pain (principal)
CPT/HCPCS: 36415; 74177; 82565; 84520; Q9967

== ENCOUNTER → 2023-05-05 13:35 | Outpatient (CLI) | payer BC, SELFPAY ==
[2023-05-05 15:22] LABS: Blood Urea Nitrogen 11 mg/dl (9-20); Estimated Glomerular Filt Rate 116 ml/min (>60); GFR (African American) 141 ML/MIN (>60)
== END ==
PROVIDERS: PCP Family Medicine; Visit Provider Surgery
DX: R10.31 Right lower quadrant pain (principal); R10.32 Left lower quadrant pain
CPT/HCPCS: 36415; 82565; 84520

== ENCOUNTER → 2023-05-17 07:56 | Outpatient (CLI) | payer BC, SELFPAY ==
--- NOTE | 2023-05-17 07:56 | MR_ITS ---
FINAL REPORT CLINICAL HISTORY: pain pain hx hernia surgery 8 months ago lower umbilical pain where hernia was nausea 14 ml prohance COMPARISON: CT abdomen and pelvis 04/27/2023 FINDINGS: Multiplanar MR imaging of the abdomen was performed without and with contrast. There is a 5 mm rounded mass in the anterior aspect of the liver dome, likely either hemorrhagic or proteinaceous cyst. There are several other less than 1 cm in size hepatic cysts identified. There is bilateral adrenal enlargement with loss of signal in the opposed phase images, consistent with bilateral adrenal adenomas. There is no evidence of biliary ductal dilatation. The gallbladder has an unremarkable appearance. There is splenomegaly present, with the spleen measuring 14.3 cm in length. Bilateral renal cysts are present, without evidence of hydronephrosis. No other mass or adenopathy is identified. No abnormal fluid collection is seen. No abnormal contrast enhancement is seen on the postcontrast images. IMPRESSION: 5 mm rounded mass anterior aspect of liver dome, likely hemorrhagic or proteinaceous cyst. Several other less than 1 cm in size hepatic cysts are identified as well. Bilateral adrenal adenomas. Splenomegaly. Reviewed, Interpreted and Dictated by Mathieu Rodriguez III, MD Transcribed by Cristine Alvarez Authenticated and [facility]
--- NOTE | 2023-05-17 07:56 | MR_ITS ---
FINAL REPORT CLINICAL HISTORY: pain hx hernia surgery 8 months ago lower umbilical pain where hernia was nausea 14 ml prohance FINDINGS: Multi planar MR imaging of the pelvis was performed with and without contrast. There is abnormal T2 signal in the inferior aspect of the left paraspinous musculature consistent with muscle injury. There is bladder wall thickening, likely inflammatory. There is no evidence of abnormal contrast enhancement on the postcontrast images. No mass or abnormal fluid collection is identified. There is no evidence of hernia. IMPRESSION: Muscle injury at the inferior aspect of the left paraspinous musculature. Reviewed, Interpreted and Dictated by Mathieu Rodriguez III, MD Transcribed by Allyn Torres Authenticated and [facility]
== END ==
PROVIDERS: PCP Family Medicine; Visit Provider Surgery
DX: K40.90 Unilateral inguinal hernia, without obstruction or gangrene, not specified as recurrent (principal)
CPT/HCPCS: 72197; 74183; A9576